=== PATIENT | female | born 1960 | race Caucasian/White ===

== ENCOUNTER 2017-09-19 05:48 | Emergency (ER) | payer OTHER, SELFPAY ==
[2017-09-19 05:49] VITALS: BP 132/85; PULSE 112; RESP 18; TEMP 37.7; O2SAT 96; BMI 20.3
[2017-09-19 05:55] VITALS: O2SAT 97
--- NOTE | 2017-09-19 05:56 | NURSING ---
RN REQUESTED EKG, NO OLD EKG'S IN MUSE
--- NOTE | 2017-09-19 05:59 | RAD_ITS ---
STUDY: X-RAY CHEST REASON FOR EXAM: Female, 57 years old. Cough and fever TECHNIQUE: PA and lateral COMPARISON: None. FINDINGS: There is advanced COPD. There are opacities at the lung bases suggesting infiltrates. There are NO effusions or pneumothoraces. Normal size heart. Normal mediastinum and dov. Normal visualized pulmonary arteries. Normal visualized aortic arch and descending thoracic aorta. There are diffuse degenerative changes of the visualized thoracic spine. Normal visualized ribs, clavicles, and shoulders. There is no demonstrated abnormality of the visualized soft tissue structures of the upper abdomen. RAD/Chest PA and Lateral IMPRESSION: There is advanced COPD. There are opacities at the lung bases suggesting infiltrates. There are NO effusions or pneumothoraces. There is no demonstrated pleural abnormality. Normal size heart. Electronically Signed: Ronak Bales MD at 6:36 EST , Service support ,
--- NOTE | 2017-09-19 05:59 | EKG12_ITS ---
Test Reason : CP Blood Pressure : / mmHG Vent. Rate : 104 BPM Atrial Rate : 104 BPM P-R Int : 142 ms QRS Dur : 076 ms QT Int : 312 ms P-R-T Axes : 082 078 043 degrees QTc Int : 410 ms Sinus tachycardia Otherwise normal ECG Confirmed by RADHA COOK, CELE ([id number]), real estate job titles SHAY RENEE ([id number]) on 09/24/2017 3:56:49 PM Referred By: SOLOMON Confirmed By:CELE GARCIA MD
[2017-09-19] MEDS: Ibuprofen 400 MG Tablet 800 MG PO (06:04)
--- NOTE | 2017-09-19 06:35 | ED.VISSUMM ---
- ER Visit Summary Date of Service: 09/19/17 Chief Complaint: [] Chest pain with cough History of Present Illness: The patient is a 57 F complaining of cough for the last week. Not significantly productive. No flu shot. She has had some chest discomfort over the last couple days. She describes a sharp pain mainly when she coughs. No cardiac PE or diet dissection risk factors. She has never had pleurisy. She has been using intermittent ibuprofen. Physical Examination: Vital signs reviewed temperature 99.9 General: Well-nourished well-developed Head: Normocephalic atraumatic Eyes: Pupils equal round and reactive to light extraocular movements intact ENT: TMs clear no hemotympanum no trauma Neck: Nontender full range of motion Cardiovascular: Regular tachycardia with normal rhythm no murmurs normal S1-S2 Respiratory: No distress clear to auscultation bilaterally chest nontender Abdomen: Soft nontender nondistended normal bowel sounds no masses Back: Nontender no CVA tenderness Extremities: Nontender active range of motion ?4 extremities no trauma Skin: Normal color no trauma Neuro alert oriented cranial nerves II through XII intact normal strength sensation reflexes Test Results: [] Emergency Department Course and Treatment: [] Flu negative. Chest x-ray shows bilateral streaky atelectasis. No significant infiltrate. At this time patient likely has bronchitis with pleurisy. EKG was obtained and shows sinus rhythm at 104 without ischemia. I have a low suspicion for PE dissection or coronary artery disease. She has had a significant cough. She will follow-up as an outpatient and continue anti-inflammatories. I will give her azithromycin. Treatment Plan: [] Disposition: [] Impression: [] Acute bronchitis Pleurisy This note was generated with [employer] dictation software. It may contain incorrect words, spelling, and punctuation that were not noted in review of the chart prior to signing ED Disposition - Plan for ED Patient: Chief Complaint: Chest Pain Referrals: Chon Hinson [Primary Care Provider] -
--- NOTE | 2017-09-19 06:37 | ED.DEP ---
ED Disposition - Plan for ED Patient: Disposition: Home or Assisted Living Chief Complaint: Chest Pain Instructions: Acute Bronchitis, Pleurisy Prescriptions: Azithromycin [Zithromax Z-Adeel] 250 mg PO UD #1 box Referrals: Chon Hinson [Primary Care Provider] -
[2017-09-19 06:44] VITALS: BP 113/73; PULSE 102; RESP 18; O2SAT 94
== END 2017-09-19 06:45 | disposition home or self-care (01) ==
PROVIDERS: Emergency Provider Emergency Medicine; Family Provider Family Medicine; PCP Family Medicine
DX: J20.9 Acute bronchitis, unspecified (principal); R09.1 Pleurisy; J98.11 Atelectasis; R00.0 Tachycardia, unspecified
CPT/HCPCS: 71046; 87804; 93005; 99284

== ENCOUNTER 2023-05-21 10:59 | Emergency (ER) | payer OTHER, SELFPAY ==
[2023-05-21 11:01] VITALS: BP 113/73; PULSE 79; RESP 14; TEMP 35.5; O2SAT 100; BMI 19.3
--- NOTE | 2023-05-21 11:33 | RAD_ITS ---
STUDY: X-RAY - LEFT TIBIA AND FIBULA REASON FOR EXAM: Female, 63 years old. Infection -- -- C/O LEFT CALF SWELLING AND REDNESS, C/O FEVERS OFF/ON SINCE SUNDAY. TECHNIQUE: 2 view(s) of the tibia and fibula were obtained. COMPARISON: None. FINDINGS: Normal visualized tibia. Normal visualized fibula. Soft tissue swelling. RAD/Tibia & Fibula 2 Views IMPRESSION: Soft tissue swelling. No bony abnormality is seen. Electronically Signed: Aditya Loera MD at 12:47 EDT ,
--- NOTE | 2023-05-21 11:33 | RAD_ITS ---
STUDY: X-RAY - LEFT FOOT CLINICAL: Female, 63 years old. Infection -- -- C/O LEFT CALF SWELLING AND REDNESS, C/O FEVERS OFF/ON SINCE SUNDAY. TECHNIQUE: 3 view(s) of the foot. COMPARISON: None. FINDINGS: Normal talus, calcaneus, and tarsal bones. Normal visualized subtalar, talonavicular, calcaneocuboid, tarsal and tarsometatarsal articulations. Normal metatarsi. Normal metatarsophalangeal joint of the great toe. Normal tibial and fibular sesamoid bones. Normal interphalangeal joint of the great toe. Normal phalanges of the great toe. Normal second through fifth metatarsophalangeal joints. Normal interphalangeal joints and phalanges of the lesser toes. Soft tissue swelling. RAD/Foot min 3 Views IMPRESSION: Soft tissue swelling. Electronically Signed: Aditya Loera MD at 12:50 EDT ,
--- NOTE | 2023-05-21 11:33 | VDLE_ITS ---
Reason For Study: LEG SWELLING RIGHT LEFT CFV is compressible, spontaneous, competent CFV is compressible, spontaneous, competent, and demonstrates pulsatile venous flow. and demonstrates pulsatile venous flow. Procedure FV is compressible, spontaneous, competent This is a venous duplex using B-mode, color and demonstrates pulsatile venous flow. flow and spectral Doppler. POP V is compressible, spontaneous, competent Exam performed portable in ED. and demonstrates pulsatile venous flow. The exam was diagnostic. T/P Trunk is compressible. A preliminary report was called and/or faxed PTV is compressible. to Dr. Kerr. LT PerV is compressible. VL/Venous Duplex US, Unilateral Interpretation Summary Deep veins of the left lower extremity are patent and compressible segmentally. There is no evidence of left lower extremity deep vein thrombosis. The left great saphenous vein liat ears patent and compressible segmentally. Ordering Physician: Leon Kerr Performed By: Ayden Devi RVT
[2023-05-21 11:56] LABS: Absolute Lymphocyte Count 0.74 X10^3/uL (0.83-4.51); Absolute Neutrophil Count 6.4 X10^3/uL (2.0-7.7); Basophil# 0.01 X10^3/uL; Basophil% 0.1 % (0-1); Eosinophil# 0.02 X10^3/uL; Eosinophils% 0.3 % (0-5); Hematocrit 35.5 % (37-47); Hemoglobin 11.7 g/dL (12.0-15.0); Lymphocyte # 0.74 X10^3/ul (0.83-4.51); Lymphocyte % 9.7 % (19-41); Mean Corpuscular Volume 88.1 fL (81-99); Mean Platelet Vol. 9.6 fl (6.2-12.0); Monocyte# 0.47 X10^3/uL; Monocyte% 6.1 % (0-10); NRBC Flagged by Analyzer 0 % (0-5); Neutrophil # 6.39 X10^3/uL (2.7-7.7); Neutrophil % 83.5 % (47-70); Platelet Count 158 K/mm3 (150-450); RBC Distribution Width CV 13.8 % (11.6-14.6); RBC Distribution Width SD 44.9 fl (35.1-43.9); Red Blood Count 4.03 M/mm3 (4.2-5.4); White Blood Count 7.7 K/mm3 (4.4-11.0)
--- NOTE | 2023-05-21 12:09 | EX.ED.DYSGE1 ---
HPI History of Present Illness Chief Complaint: Cellulitis Informant: patient Narrative Narrative: 63-year-old female presenting to the emergency room with left leg and foot swelling and redness. Patient states on Sunday she went to a local urgent care. Not feeling well. She noted generalized myalgias, fatigue, as well as fever. She states she was tested for RSV and other viral illness which came back negative. On Sunday she began to have swelling and some spots of erythema on the lower left leg/foot. It progressed to increased redness and swelling up to the proximal left leg. She denies any known trauma. No DVT PE risk factors. She is not a diabetic. She denies being immunosuppressed. She has not had a fever since yesterday [facility] Medical History (Updated 05/21/23 @ 14:[address] Leon Kerr DO) Anxiety Hypothyroidism Home Medications cephalexin 500 mg capsule 500 mg PO Q6 #40 CAPSULES 05/21/23 [Rx Last Taken Unknown] sulfamethoxazole 800 mg-trimethoprim 160 mg tablet 1 tab PO BID #20 TABLETS 05/21/23 [Rx Last Taken Unknown] Allergy/AdvReac Type Severity Reaction Status Date / Time No Known Allergies Allergy Verified 05/21/23 11:01 Social History Smoking Status: Never smoker ROS ROS ED ROS Narrative Fatigue Constitutional Constitutional ED: Reports chills and fever(s); Denies weight loss Eyes Eyes: Denies blurry vision, change in vision or diplopia ENT ENT ED: Denies ear pain, rhinorrhea or sore throat Cardiovascular Cardiovascular: Denies chest pain, orthopnea, palpitations or racing heartbeat Respiratory/Chest Respiratory/Chest: Denies cough, dyspnea or orthopnea Gastrointestinal Gastrointestinal: Denies abdominal pain, diarrhea, nausea or vomiting Genitourinary Genitourinary ED: Denies dysuria, hematuria or urinary frequency Musculoskeletal Musculoskeletal: Reports other Details: left leg foot swelling and erythema ; Denies arthralgias or myalgias Integumentary Reports rash; Denies abscess Neurologic Neurologic: Denies headache(s) or weakness Psychiatric Psychiatric: Denies anxiety, depression, suicidal ideation or suicidal thoughts Endocrine Endocrinology: Denies polydipsia, polyphagia or polyuria Allergic/Immunologic Allergic/Immunologic ED: Denies mouth swelling, tongue swelling or urticaria EXAM Physical Exam Const Vital Signs: 05/21/23 11:01 Temperature 96 F L Temperature Source Temporal Pulse Rate 79 Respiratory Rate 14 Blood Pressure 113/73 Blood Pressure Mean 86 Pulse Ox 100 Oxygen Delivery Method Room Air Positive well nourished and well developed General Appearance ED: well developed HEENT Reports normocephalic, head/scalp atraumatic and moist mucous membranes Eyes PERRL and EOMs intact bilaterally Neck no lymphadenopathy, supple and no JVD Resp normal respiratory effort and clear to auscultation bilaterally Cardio regular rate, regular rhythm and no murmurs GI normal to inspection, nondistended, normoactive bowel sounds and non-tender Palpation: soft Back/Spine no CVA tenderness and normal ROM Extremity Extremity Narrative: Left leg starting around the tibial tuberosity demonstrates pitting edema. There is circumferential erythema extending down into the foot. There are some dry skin with cracks around the heel of the left foot. Neurovascularly appears intact however. The calf is nontender. There are some petechial-like changes to the left leg skin. No palpable cords. Neuro oriented x3 and CN's II-XII intact bilaterally Sensorium / Orientation: alert Motor Exam: strength 5/5 throughout Psych mental status grossly normal Mood & Affect: Negative for depressed or tearful Skin no rashes or lesions noted and no wounds MDM MDM MDM Narrative Medical decision making narrative: Duplex ultrasound looking for DVT is negative. My interpretation of the plain films of the left tib-fib is soft tissue swelling. No air in the soft tissues. My interpretation of the plain films of the left foot is is soft tissue swelling. No air in the soft tissue. No obvious bony disease. Patient's white blood cell count is normal at 7.7. Hemoglobin of 11.7. Lactic acid is normal at 0.9. Sodium of 128 with a CO2 level of 20. Creatinine 1.12. Patient has remained afebrile here I personally took it at the time of discharge and is 97.7. At this point we will treat her for cellulitis. I will write for Keflex and Bactrim to cover staph and strep. Patient understands return instructions and understands follow-up procedure. Lab Data Attestation: I reviewed the patient's lab results. Labs: Laboratory Results - last 24 hr 05/21/23 11:45 WBC 7.7 RBC 4.03 L Hgb 11.7 L Hct 35.5 L MCV 88.1 MCH 29.0 MCHC 33.0 RDW Std Deviation 44.9 H RDW Coeff of Feliz 13.8 Plt Count 158 MPV 9.6 Immature Gran % (Auto) 0.300 Neut % (Auto) 83.5 H Lymph % (Auto) 9.7 L Banks % (Auto) 6.1 Eos % (Auto) 0.3 Baso % (Auto) 0.1 Absolute Neuts (auto) 6.4 Absolute Lymphs (auto) 0.74 L Nucleated RBC % 0 PT 14.7 INR 1.1 APTT 34.2 Sodium 128 L Potassium 3.8 Chloride 100 Carbon Dioxide 20.0 L Anion Gap 8 BUN 29 H Creatinine 1.12 H Estim Creat Clear Calc 48.37 Est GFR (MDRD) Af Amer 63 Est GFR (MDRD) Non-Af 52 L BUN/Creatinine Ratio 25.9 H Glucose 83 Lactic Acid 0.9 Calcium 8.4 L Total Bilirubin 0.50 AST 45 H ALT 30 Alkaline Phosphatase 108 Total Protein 8.3 H Albumin 2.7 L Globulin 5.6 H Albumin/Globulin Ratio 0.5 L Radiography Diagnostic Testing: Clinical Impression(s) from Imaging Studies Foot X-Ray 05/21/23 11:33 IMPRESSION: Soft tissue swelling. Electronically Signed: Aditya Loera MD at 12:50 EDT , Tibia/Fibula X-Ray 05/21/23 11:33 IMPRESSION: Soft tissue swelling. No bony abnormality is seen. Electronically Signed: Aditya Loera MD at 12:47 EDT , Discharge Plan Triage Chief Complaint: Cellulitis ED Provider: Leon Kerr Dx/Rx/DC Orders Clinical Impression: Cellulitis of left leg, Cellulitis of foot, left Instructions: Cellulitis Dc Prescriptions: New sulfamethoxazole-trimethoprim [sulfamethoxazole-trimethoprim] 800-160 mg tablet 1 tab PO BID Qty: 20 0RF cephalexin [cephalexin] 500 mg capsule 500 mg PO Q6 Qty: 40 0RF Primary Care Provider: Chon Hinson Referrals: Chon Hinson MD [Primary Care Provider] - 3-5 Days Disposition Disposition: Home, Self Care
[2023-05-21 12:17] LABS: Partial Thromboplast Time 34.2 Seconds (24.1-36.2)
[2023-05-21 12:19] LABS: ALB/GLOB Ratio 0.5 RATIO (0.9-2.4); AST(SGOT) 45 U/L (15-37); Alanine Aminotransfer ALT/SGPT 30 U/L (13-56); Albumin, Serum 2.7 g/dL (3.2-5.0); Alkaline Phosphatase 108 U/L (45-117); Anion Gap 8 (5-15); BUN 29 mg/dL (7-18); BUN/Creat Ratio 25.9 RATIO (10-20); Calcium,Total 8.4 mg/dL (8.5-10.1); Chloride 100 mmol/L (98-107); Creatinine, Serum 1.12 mg/dL (0.55-1.02); EST Glomerular Filtration Rate 52 mL/min (>60); Est Glom Filt Rate - Afr Amer 63 mL/min (>60); Estimated Creatinine Clearance 48.37 ml/min; Globulin 5.6 g/dL (2.2-4.2); Glucose 83 mg/dL (74-106); Potassium 3.8 mmol/L (3.5-5.1); Protein, Total 8.3 g/dL (6.4-8.2); Sodium Level 128 mmol/L (136-145)
[2023-05-21 12:23] LABS: International Normalized Ratio 1.1; Prothrombin Time (Protime)PT. 14.7 SECONDS (11.7-14.9)
[2023-05-21 12:33] LABS: Lactic Acid 0.9 mmol/L (0.4-1.9)
[2023-05-21 14:18] VITALS: RESP 16
== END 2023-05-21 14:20 | disposition home or self-care (01) ==
PROVIDERS: Emergency Provider Emergency Medicine; PCP Family Medicine; Visit Provider Emergency Medicine
DX: L03.116 Cellulitis of left lower limb (principal)
CPT/HCPCS: 73590; 73630; 80053; 83605; 85025; 85610; 85730; 87040; 93971; 99284; A4216

== ENCOUNTER 2023-05-23 17:47 | Emergency (ER) | payer OTHER, SELFPAY ==
[2023-05-23 17:49] VITALS: BP 126/84; PULSE 90; RESP 18; TEMP 36.2; O2SAT 100; BMI 19.4
[2023-05-23 18:44] LABS: Hematocrit 33.1 % (37-47); Mean Corp Hgb Conc 33.2 g/dL (32-36); Mean Corpuscular Volume 87.3 fL (81-99); Mean Platelet Vol. 8.9 fl (6.2-12.0); Platelet Count 241 K/mm3 (150-450); RBC Distribution Width CV 13.7 % (11.6-14.6); RBC Distribution Width SD 43.9 fl (35.1-43.9); Red Blood Count 3.79 M/mm3 (4.2-5.4); White Blood Count 6.4 K/mm3 (4.4-11.0)
[2023-05-23 18:54] LABS: Erythrocyte Sedimentation Rate 32 mm/hr (0-30)
[2023-05-23 19:01] LABS: Anion Gap 4 (5-15); BUN 15 mg/dL (7-18); Calcium,Total 8.8 mg/dL (8.5-10.1); Chloride 103 mmol/L (98-107); Creatinine, Serum 0.94 mg/dL (0.55-1.02); EST Glomerular Filtration Rate 64 mL/min (>60); Est Glom Filt Rate - Afr Amer 78 mL/min (>60); Estimated Creatinine Clearance 57.81 ml/min; Glucose 89 mg/dL (74-106); Potassium 4.4 mmol/L (3.5-5.1); Sodium Level 132 mmol/L (136-145)
[2023-05-23] MEDS: Piperacil/Tazobactam 4.5 GM in 0.9% Normal Saline (100mL MB+) 100 ML IV (19:01)
--- NOTE | 2023-05-23 19:10 | EDS_ITS ---
HPI History of Present Illness Chief Complaint: Edema Informant: patient and spouse/S.O. Narrative Narrative: His ED reevaluation left lower leg swelling and redness. Was seen 2 days in the ED with a work-up. Reported had a fever on Sunday noticed spots on her ankle on Sunday presented on Sunday with increasing swelling and redness. Work-up was initiated she was sent home on Keflex and Bactrim she has been taking this. Per redness in the back calf is improved however legs not improved. No diabetes history. No persistent fevers. No history of similar. After work-up evaluation records lab work normal white count blood cultures obtained x2 and negative thus far. Ultrasound leg was negative. Left foot and tib-fib no soft tissue swelling. PFSH PFSH Medical History Anxiety Hypothyroidism Home Medications levothyroxine 100 mcg tablet 100 mcg PO DAILY 05/23/23 [History Last Taken Unknown] sertraline 50 mg tablet 50 mg PO Q24H 05/23/23 [History Last Taken Unknown] Allergy/AdvReac Type Severity Reaction Status Date / Time No Known Allergies Allergy Verified 05/23/23 17:49 Social History household members: spouse Smoking Status: Never smoker ROS ROS ED Constitutional Constitutional ED: Denies chills, fever(s) or sweats Eyes Eyes: Denies change in vision ENT ENT ED: Denies dysphagia or sore throat Cardiovascular Cardiovascular: Reports leg edema; Denies chest pain, palpitations or racing heartbeat Respiratory/Chest Respiratory/Chest: Denies cough, dyspnea or dyspnea on exertion Gastrointestinal Gastrointestinal: Denies abdominal pain, diarrhea, nausea or vomiting Genitourinary Genitourinary ED: Denies dysuria, hematuria or urinary frequency Musculoskeletal Musculoskeletal: Denies back pain, extremity pain or neck pain Integumentary Reports rash; Denies wounds Neurologic Neurologic: Denies headache(s), paresthesias or weakness EXAM Physical Exam Const Vital Signs: 05/23/23 17:49 05/23/23 21:42 Temperature 97.2 F L Temperature Source Temporal Pulse Rate 90 Respiratory Rate 18 18 Blood Pressure 126/84 H Blood Pressure Mean 98 Pulse Ox 100 Oxygen Delivery Method Room Air Room Air Positive well nourished and well developed General Appearance ED: well developed and NAD HEENT Reports moist mucous membranes normocephalic and atraumatic Eyes PERRL, EOMs intact bilaterally and conjunctivae normal General Eye ED: Yes normal appearance of both eyes Neck no lymphadenopathy and supple General: Negative for tenderness Chest Wall Chest: Negative for tenderness Resp normal respiratory effort and normal air movement Effort and Inspection: symmetric chest movement; Negative for respiratory distress Cardio regular rate, regular rhythm and no murmurs Peripheral Pulses: pulses 2+ throughout GI normal to inspection, nondistended, normoactive bowel sounds and non-tender Palpation: Negative for guarding or rebound tenderness present Back/Spine no CVA tenderness and no thoracic nor lumbar tenderness Extremity Extremity Narrative: Left lower extremity: 2+ edema left lower leg, erythema anterior proximal tibia, erythema posterior from the mid calf down to the foot. There is mild yellow leakage of fluid distal anterior leg. Pulses were intact distally. General Extremety ED: Yes edema; Negative for tenderness General Extremity: edema Neuro oriented x3 and no sensory deficits noted Sensorium / Orientation: awake and alert Skin no rashes or lesions noted and no wounds MDM MDM MDM Narrative Medical decision making narrative: Interventions / MDM: Differential diagnosis: Left lower extremity cellulitis Diagnosis considered but do not suspect: N/A My EKG interpretation: N/A Imaging independently reviewed and interpreted by myself: N/A External documents reviewed: ED visit from 2 days ago. Negative DVT studies. X-rays with soft tissue swelling. Test considered but not ordered:N/A ED course: Vital stable nontoxic. Reporting from spouse erythema is improved posteriorly. We will recheck labs inflammatory markers. Patient covered with Zosyn and vancomycin for additional IV dose. Results Labs White count down to 6.4. Elevated inflammatory markers consistent with her clinical cellulitis findings. Erythema was outlined, reported improving slightly symptoms compared to 2 days ago. Discussed continuing her oral antibiotics with strict return precautions. All questions answered. Re-evaluation: stable Disposition discussed with patient/family/significant other: Patient and significant other Case discussed with consulting clinician: N/A This note was generated with [employer] dictation software. It may contain incorrect words, spelling, and punctuation that were not noted in checking the note before signing. Lab Data Attestation: I reviewed the patient's lab results. Labs: Laboratory Results - last 24 hr 05/23/23 18:35 WBC 6.4 RBC 3.79 L Hgb 11.0 L Hct 33.1 L MCV 87.3 MCH 29.0 MCHC 33.2 RDW Std Deviation 43.9 RDW Coeff of Feliz 13.7 Plt Count 241 MPV 8.9 ESR 32 H Sodium 132 L Potassium 4.4 Chloride 103 Carbon Dioxide 25.0 Anion Gap 4 L BUN 15 Creatinine 0.94 Estim Creat Clear Calc 57.81 Est GFR (MDRD) Af Amer 78 Est GFR (MDRD) Non-Af 64 BUN/Creatinine Ratio 16.0 Glucose 89 Calcium 8.8 C-React Prot Ext Range 93.30 H Discharge Plan Triage Chief Complaint: Edema ED Provider: Winston De Dx/Rx/DC Orders Clinical Impression: Cellulitis of left leg, Cellulitis of foot, left Instructions: ED Cellulitis Prescriptions: No Action sertraline 50 mg tablet 50 mg PO Q24H levothyroxine 100 mcg tablet 100 mcg PO DAILY Primary Care Provider: Chon Hinson Referrals: Chon Hinson MD [Primary Care Provider] - Activity Restrictions/Additional Instructions: Labs stable, continue your current antibiotic regimen. Follow-up with your doctor. Return if any worsening symptoms. Disposition Disposition: Home, Self Care Discharge Date/Time: 05/23/23 22:26
[2023-05-23] MEDS: Vancomycin HCl 1,500 MG in 0.9% Normal Saline (500mL Bag) 500 ML 250 MG IV (19:47)
[2023-05-23 21:42] VITALS: RESP 18
== END 2023-05-23 22:26 | disposition home or self-care (01) ==
PROVIDERS: Emergency Provider Emergency Medicine; PCP Family Medicine; Visit Provider Emergency Medicine
DX: L03.116 Cellulitis of left lower limb (principal); E03.9 Hypothyroidism, unspecified; F41.9 Anxiety disorder, unspecified; Z79.899 Other long term (current) drug therapy
CPT/HCPCS: 80048; 85027; 85652; 86140; 99283; J7040; J7050; A4216

== ENCOUNTER → 2023-07-18 | Outpatient (CLI) | payer OTHER, SELFPAY ==
--- NOTE | 2023-07-18 08:10 | VDLE_ITS ---
Reason For Study: LLE Swelling RIGHT LEFT GSV is normal. GSV is normal. CFV is compressible, spontaneous, phasic, CFV is compressible, spontaneous, phasic, competent and demonstrates normal competent, and demonstrates normal augmentation. augmentation. FV is compressible, spontaneous, phasic, FV is compressible, spontaneous, phasic, competent and demonstrates normal competent and demonstrates normal augmentation. augmentation. POP V is compressible, spontaneous, phasic, POP V is compressible, spontaneous, phasic, competent and demonstrates normal competent and demonstrates normal augmentation. augmentation. T/P Trunk is compressible. T/P Trunk is compressible. PTV is compressible. PTV is compressible. RT PerV is compressible. LT PerV is compressible. Procedure This is a venous duplex using B-mode, color flow and spectral Doppler. Exam performed in department. The exam was diagnostic. VL/Venous Duplex US - Nikita Extrem Interpretation Summary Deep veins of the lower extremities are bilaterally patent and compressible seg mentally. There is no evidence of deep vein thrombosis on either side. Valvular competence appears in tact within the proximal deep venous systems bilaterally. The great saphenous veins appear bila terally patent and compressible segmentally. Ordering Physician: Leon Canela Referring Physician: Chon Hinson Performed By: Ayden Devi, RVT
--- NOTE | 2023-07-18 08:10 | AAVD_ITS ---
Reason For Study: R/O May Thurner Aorta Measurements Aorta Doppler Measurements Proximal aorta measures1.96 x 2.16cm. in cross- Peak systolic flow velocities within the proximal sectional axis. aorta measure 95.9 cm/sec. Proximal aorta measures2.11cm. in longitudinal Peak systolic flow velocities within the mid aorta axis. measure 75.9 cm/sec. Mid aorta measures1.59 x 1.48cm. in cross- Peak systolic flow velocities within the distal sectional axis. aorta measure 77.7 cm/sec. Mid aorta measures1.66cm. in longitudinal axis. Distal aorta measures1.58 x 1.57cm. in cross- sectional axis. Distal aorta measures1.59cm. in longitudinal axis. Left Iliac Artery Left iliac artery measures 0.92 x 0.92 cm. in the cross-sectional axis. Left iliac artery measures 0.91 cm. in the longitudinal axis. Peak systolic velocity in the left iliac artery measures 77.7 cm/sec. Right Iliac Artery Right iliac artery measures 0.93 x 0.91 cm. in the cross-sectional axis. Right iliac artery measures 0.86 cm. in the longitudinal axis. Peak systolic velocity in the right iliac artery measures 92.2 cm/sec. Inferior Vena Cava Proximal inferior vena cava measures 1.78 x 2.20 cm. in the cross-sectional axis. Proximal inferior vena cava measures 1.86 cm. in the longitudinal axis. Mid inferior vena cava measures 1.49 cm. in the longitudinal axis. Distal inferior vena cava measures 1.30 cm. in the longitudinal axis. The inferior vena cava has spontaneous, phasic flow throughout. IVC is compressible at mid. Left Common Iliac Vein Left common iliac vein measures 0.89 cm. in the longitudinal axis. The left common iliac vein has spontaneous, phasic flow throughout. Right Common Iliac Vein Right common iliac vein measures 1.21 cm. in the longitudinal axis. The right common iliac vein has spontaneous, phasic flow throughout. VL/Abd Aortic/IVC Duplex scan Interpretation Summary The dimensions of the intra-abdominal aorta appear normal, without evidence of aneurysmal dilatation. The iliac arteries also appear normal in caliber bilaterally. The i ntra-abdominal aorta and iliac arteries appear patent, demonstrating normal, pulsatile arterial flow and normal peak systolic velocities. The inferior vena cava and common iliac veins are patent a nd normal in caliber. Ordering Physician: Leon Canela Referring Physician: Chon Hinson Performed By: Ayden Devi RVT
== END | disposition home or self-care (01) ==
LOC: CVS 08:08
PROVIDERS: PCP Family Medicine; Referring Provider Podiatrist; Visit Provider Podiatrist
DX: M79.605 Pain in left leg (principal); R22.42 Localized swelling, mass and lump, left lower limb; M79.604 Pain in right leg; R22.41 Localized swelling, mass and lump, right lower limb
CPT/HCPCS: 93970; 93978

== ENCOUNTER → 2023-08-24 | Outpatient (CLI) | payer OTHER, SELFPAY ==
--- NOTE | 2023-08-24 09:48 | VDLE_ITS ---
Reason For Study: Swelling RIGHT LEFT CFV is compressible, spontaneous, phasic, CFV is compressible, spontaneous, phasic, competent and demonstrates normal competent, and demonstrates normal augmentation. augmentation. FV is compressible, spontaneous, phasic, FV is compressible, spontaneous, phasic, competent and demonstrates normal competent and demonstrates normal augmentation. augmentation. POP V is compressible, spontaneous, phasic, POP V is compressible, spontaneous, phasic, competent and demonstrates normal competent and demonstrates normal augmentation. augmentation. T/P Trunk is compressible. T/P Trunk is compressible. PTV is compressible. PTV is compressible. RT PerV is compressible. LT PerV is compressible. SFJ is competent and measures 0.66 x 0.79 cm. SFJ is competent and measures 0.83 x 0.95 cm. GSV proximal thigh measures 0.29 x 0.31 cm. GSV proximal thigh measures 0.37 x 0.36 cm. GSV above knee is competent. GSV above knee is competent. GSV at knee measures 0.23 x 0.23 cm. GSV at knee measures 0.28 x 0.27 cm. GSV below knee is INCOMPETENT for greater GSV below knee is INCOMPETENT for greater than 0.5 seconds. than 0.5 seconds. SSV proximal calf is INCOMPETENT for greater SSV proximal calf is INCOMPETENT for greater than 0.5 seconds and measures 0.28 x 0.29 cm. than 0.5 seconds and measures 0.28 x 0.28 cm. Procedure This is a venous duplex using B-mode, color flow and spectral Doppler. Exam performed in department. VL/Venous Duplex US - Nikita Extrem Interpretation Summary Deep veins of the bilateral lower extremities are patent and compressible segme ntally. There is no evidence of bilateral lower extremity deep vein thrombosis. The bilateral great saphenous veins appear patent and compressible segmentally. Positive for reflux in the right great saphenous vein below the knee, small sap henous vein Positive for reflux in the left great saphenous vein below the knee, small saph enous vein Ordering Physician: Berta Davenport Referring Physician: Chon Hinson Performed By: Diana Bailon RVT
--- OUTSIDE RECORDS SUMMARY | 2023-08-24 10:38 | XMS RPT_ITS | CCD ---
Author Name Unknown Address [address] [place] [address] Organization [facility] Care Team Providers Care Logistics Technician Name Role Phone Nam Hinson Primary Care Provider NAM HINSON Primary Care Unavailable NAM HINSON Primary Care Unavailable LELE ANNA MD Primary Care Unavailable LELE ANNA MD Attending Unavailable NAM HINSON Consulting Unavailable NAM HINSON Referring Unavailable LELE ANNA MD Admitting Unavailable PROVIDER, UNKNOWN Consulting Unavailable PROVIDER, UNKNOWN Consulting Unavailable NAM HINSON Admitting Unavailable NAM HINSON Primary Care Unavailable NAM HINSON Consulting Unavailable NAM HINSON Attending Unavailable PROVIDER, UNKNOWN Consulting Unavailable PROVIDER, UNKNOWN Consulting Unavailable Malcolm Lambert CNP Unavailable Nam Hinson MD Primary Care Provider [phone] Nam Hinson MD Primary Care Provider [phone] Malcolm Lambert CNP Unavailable DARELL, PRITY MIKE Attending Unavailable DARELL, PRITY MIKE Admitting Unavailable NAM HINSON Primary Care Unavailable DARELL, PRITY MIKE Referring Unavailable DARELL, PRITY MIKE Attending Unavailable NAM HINSON Primary Care Unavailable DARELL, PRITY MIKE Referring Unavailable DARELL, PRITY MIKE Attending Unavailable DARELL, PRITY MIKE Admitting Unavailable NAM HINSON Primary Care Unavailable Medications Current Medications Medication Drug Class(es) Dates Sig (Normalized) Sig (Original) amoxicillin 500 mg oral tablet (3 sources) Penicillin-class Antibacterial Start: 06-25-2023 End: 07-02-2023 take 1 tablet by mouth twice daily amoxicillin (AMOXIL) 500 MG tablet Take 1 (one) tablet (500 mg total) by mouth 2 (two) times a day for 7 days . 14 tablet 0 06/25/2023 07/02/2023 Active ciprofloxacin 500 mg oral tablet (3 sources) Quinolone Antimicrobial take 1 tablet by mouth twice daily ciprofloxacin HCl (CIPRO) 500 MG tablet Take 1 (one) tablet (500 mg total) by mouth 2 (two) times a day . 0 Active doxycycline hyclate 100 mg oral capsule (6 sources) Tetracycline-class Drug Start: 06-25-2023 End: 07-02-2023 take 1 capsule by mouth twice daily at mealtime doxycycline hyclate (VIBRAMYCIN) 100 MG capsule Take 1 (one) capsule (100 mg total) by mouth 2 (two) times a day with meals Stay out of the sun. for 7 days . 14 capsule 0 06/25/2023 07/02/2023 Active Completed/Discontinued Medications Medication Drug Class(es) Dates Sig (Normalized) Sig (Original) betamethasone 0.5 mg/ml / clotrimazole 10 mg/ml topical cream (4 sources) Azole Antifungal, Corticosteroid Start: 06-27-2023 End: 06-27-2023 clotrimazole-bet amethasone (LOTRISONE) cream Problems Active Problems Problem Classification Problem Date Documented Da te Episodic/Chronic Cataract (3 sources) Nuclear sclerotic cataract; Translations: [Age-related nuclear cataract, bilateral] Onset: 10-02-2016 10-02-2016 Chronic Mycoses (5 sources) Tinea pedis; Translations: [Tinea pedis] Onset: 06-25-2023 06-25-2023 Episodic Other eye disorders (3 sources) Vitreous floaters; Translations: [Other vitreous opacities, unspecified eye] Onset: 10-02-2016 10-02-2016 Chronic Other injuries and conditions due to external causes (1 source) Injury of elbow; Translations: [Unspecified injury of right elbow, initial encounter] Episodic Other injuries and conditions due to external causes (1 source) Injury of head; Translations: [Unspecified injury of head, initial encounter] Episodic Other upper respiratory infections (1 source) Acute upper respiratory infection; Translations: [Acute upper respiratory infection, unspecified] 05-19-2023 Episodic Residual codes; unclassified (3 sources) Swelling; Translations: [Edema, unspecified] 06-25-2023 Episodic Residual codes; unclassified (2 sources) Edema, unspecified; Translations: [Edema, unspecified] Onset: 06-25-2023 Episodic Skin and subcutaneous tissue infections (6 sources) Cellulitis; Translations: [Cellulitis of other sites] Onset: 06-25-2023 06-22-2023 Episodic Past or Other Problems Problem Classification Problem Date Documented Da te Episodic/Chronic Blindness and vision defects (9 sources) Myopia; Translations: [Myopia, unspecified eye] Onset: 10-02-2016 10-02-2016 Episodic Other eye disorders (3 sources) Dry eyes; Translations: [Dry eye syndrome of bilateral lacrimal glands] Onset: 10-02-2016 10-02-2016 Episodic Results Test Name Value Interpretation Reference Range Facil ity Vital Signs Date Time Vital Sign Value Performing Clinician Faci lity 06-27-2023 09:37-0500 Body temperature 97.39 [degF] Josiah Lozoya MD Work Phone: [facility] 06-27-2023 09:37-0500 Diastolic blood pressure 83 mm[Hg] Josiah Lozoya MD Work Phone: [facility] 06-27-2023 09:37-0500 Heart rate 70 /min Josiah Lozoya MD Work Phone: [facility] 06-27-2023 09:37-0500 Respiratory rate 18 /min Josiah Lozoya MD Work Phone: [facility] 06-27-2023 09:37-0500 SaO2% (BldA) [Mass fraction] 99 % Josiah Lozoya MD Work Phone: [facility] 06-27-2023 09:37-0500 Systolic blood pressure 134 mm[Hg] Josiah Lozoya MD Work Phone: [facility] 06-25-2023 09:48-0500 Body height 175.3 cm Josiah Lozoya MD Work Phone: [facility] 06-25-2023 09:48-0500 Body mass index (BMI) [Ratio] 19.2 kg/m2 Josiah Lozoya MD Work Phone: [facility] 06-25-2023 09:48-0500 Body temperature 98.6 [degF] Josiah Lozoya MD Work Phone: [facility] 06-25-2023 09:48-0500 Body weight 58.97 kg Josiah Lozoya MD Work Phone: [facility] 06-25-2023 09:48-0500 Diastolic blood pressure 78 mm[Hg] Josiah Lozoya MD Work Phone: [facility] 06-25-2023 09:48-0500 Heart rate 63 /min Josiah Lozoya MD Work Phone: [facility] 06-25-2023 09:48-0500 Respiratory rate 18 /min Josiah Lozoya MD Work Phone: [facility] 06-25-2023 09:48-0500 SaO2% (BldA) [Mass fraction] 97 % Josiah Lozoya MD Work Phone: [facility] 06-25-2023 09:48-0500 Systolic blood pressure 125 mm[Hg] Josiah Lozoya MD Work Phone: [facility] 05-19-2023 13:48-0400 Body temperature 102.4 [degF] Joya Menendez APRN.ENTREPRENEURIAL FINANCE PROFESSOR Work Phone: [facility] 05-19-2023 13:48-0400 Body weight 59.15 kg Joya Menendez APRN.[employer] FINANCE PROFESSOR Work Phone: [facility] 05-19-2023 13:48-0400 Diastolic blood pressure 64 mm[Hg] Joya Menendez APRN.[employer] FIN[employer] PROFESSOR Work Phone: [facility] 05-19-2023 13:48-0400 Heart rate 115 /min Joya Menendez APRN.[employer] FINANCE PROFESSOR Work Phone: [facility] 05-19-2023 13:48-0400 Respiratory rate 16 /min Joya Menendez APRN.[employer] FINANCE PROFESSOR Work Phone: [facility] 05-19-2023 13:48-0400 SaO2% (BldA) [Mass fraction] 98 % Joya Menendez APRN.[employer] FINANCE PROFESSOR Work Phone: [facility] 05-19-2023 13:48-0400 Systolic blood pressure 98 mm[Hg] Joya Menendez APRN.[employer]RE[employer] FINANCE PROFESSOR Work Phone: [facility] 03-21-2022 08:16-0400 Body temperature 97.9 [degF] Darlyn Bogner PA-C Work Phone: [facility] 03-21-2022 08:16-0400 Body weight 58.97 kg Darlyn Bogner PA-C Work Phone: [facility] 03-21-2022 08:16-0400 Diastolic blood pressure 60 mm[Hg] Darlyn Bogner PA-C Work Phone: [facility] 03-21-2022 08:16-0400 Heart rate 90 /min Darlyn Bogner PA-C Work Phone: [facility] 03-21-2022 08:16-0400 Respiratory rate 16 /min Darlyn Bogner PA-C Work Phone: [facility] 03-21-2022 08:16-0400 SaO2% (BldA) [Mass fraction] 99 % Darlyn Bogner PA-C Work Phone: [facility] 03-21-2022 08:16-0400 Systolic blood pressure 102 mm[Hg] Darlyn Bogner PA-C Work Phone: [facility] Encounters Encounter Date Encounter Type Care Provider Facility Start: 06-27-2023 End: 06-27-2023 ambulatory JOSIAH LOZOYA [facility] Start: 06-27-2023 End: 06-27-2023 Office outpatient visit 25 minutes Josiah Lozoya MD Work Phone: [facility] Procedures Date Procedure Procedure Detail Performing Clinician Start: 06-25-2023 Cul bact xcpt urine blood/stool aerobic isol Prity Darell MD Work Phone: Start: 11-02-2010 Ben Loving PA-C Work Phone: Plan of Treatment Date Care Activity Detail Author Start: 07-02-2023 End: 07-02-2023 Patient encounter procedure 07/02/2023 9:30 AM EST Office Visit [facility] [address] [place] [id number] Josiah Lozoya MD [address] [address] Discharge Disposition: Home [facility] Start: 06-27-2023 End: 06-27-2023 Patient encounter procedure 06/27/2023 9:15 AM EST Office Visit [facility] [address] [place] [id number] Josiah Lozoya MD [address] [address] Discharge Disposition: Home [facility] Start: 05-19-2023 End: 06-02-2023 COVID & INFLUENZA A/B & RSV NAAT, ROUTINE COVID & INFLUENZA A/B & RSV NAAT, ROUTINE Microbiology Routine URI, acute Expected: 05/19/2023, Expires: 06/02/2023 [facility] Work Phone: Immunizations Immunization Date Immunization Notes Care Provider Fa cilimica 06-09-2022 influenza virus vacc ine, unspecified formulation Joya Menendez APRN.CNP Work Phone: [facility] Payers Date Payer Category Payer Unknown [id number] 2020 Unknown [employer] PPO [id number] 2020-Present [phone] [address] [place] [address] PPO [id number] 2020 Unknown [id number] 1960 Unknown [id number] 1960 Unknown [id number] 1960 Unknown [id number] 1960 Unknown [id number] 1960 Unknown [id number] Social History Date Type Detail Facility Start: 11-25-2020 End: 06-25-2023 Tobacco smoking status NHIS Never smoked tobacco [facility] Work Phone: Start: 03-21-2022 End: 05-19-2023 Alcohol intake Current non-drinker of alcohol (finding) [facility] Start: 1960 Sex Assigned At Not on file [facility] Start: 03-11-2022 End: 03-21-2022 Exposure to SARS-CoV-2 (event) Not sure [facility] Work Phone: Start: 11-25-2020 End: 05-19-2023 Tobacco use and exposure Smokeless tobacco non-user [facility] Start: 05-19-2023 End: 06-25-2023 History of Social function [facility] Start: 05-19-2023 End: 06-25-2023 Tobacco use panel [facility] National Score (1-100), lower number is lower risk 56 [facility] Tobacco smoking status NHIS Tobacco smoking consumption unknown [facility] Start: 06-25-2023 End: 06-27-2023 Alcohol intake Lifetime non-drinker (finding) [facility] Clinical Notes 03-21-2022 to 06-27-2023 Patient Abena Cardenas, ERICKSON - 06/27/2023 9:15 AM Josiah Miramontes MD - 06/27/2023 9:15 AM Zo Del Cid LPN - 06/25/2023 11:26 AM Josiah Miramontes MD - 06/25/2023 10:12 AM EST Note Date & Type Note Facility 06-27-2023 Instructions Margarita Avery RN - 06/27/2023 10:18 AM EST Silver cell in the webspace between the third fourth and fourth webspace of the left foot then put Curlex or a strip of smooth 4 x 4 between the toes She will put the powder that she has which is nystatin powder between the toes at bedtime Okay to shower do not rub do not scrub dry it with a smooth discharge can use a environmental studies department chair on cold in the webspace to dry it up before putting a new dressing she can put the powder first and the silver cell Doxycycline 100 mg p.o. twice daily Amoxicillin 500 mg p.o. twice daily Revisit 1 week Kingsley bandage to the left leg during the day remove at nighttime documented in this encounter [facility] 06-27-2023 History of Present illness Narrative Date: 06/25/2023 Update since last visit: 06/25/2023 I have personally reviewed all labs and other results 06/25/2023 Venous Ultrasound Conclusions * No evidence of deep or superficial vein thrombosis in the left lower extremity. 06/17/2023 CT Left Tib/Fib Conclusion: There is no evidence of focal bone abnormality. Extensive subcutaneous edema is present consistent ith cellulitis. There is no evidence of drainable abscess. Current antibiotics: Amoxicillin 500 mg PO BID Doxycycline 100 mg PO BID Current culture: 06/25/2023 [id number], 5th toe webspace: Normal umer after 24 hours. Preliminary. Dressing: Left leg: Lotrisone in clinic. Interdry to toes. DSD, kingsley wrap Images from the original note were not included. Infectious Diseases Consultation Note Patient Name: Katrin Duran MR #: [id number] : 1960 Physicians: Nam Hinson MD (Family); No ref. provider found (Referring) Assessment and Plan: 06/25/2023 impression 1) left extremity cellulitis 2) skin with peeling suggestive of staph and strep and original blisters 3) tinea pedis left fourth and fifth webspaces primary source for this recurrence and persistence 4) venous pressure negative at [facility] will need to repeat 5) good ongoing pulses 6) failed multiple p.o. 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 window where she can come in follow-up appointments with physicians 06/27/2023 Left leg cellulitis Dermatitis Tinea pedis Responding well empirically to staph and strep coverage culture was normal umer Venous ultrasound negative for DVT At risk for tissue loss Recommend: 06/27/2023 Silver cell in the webspace between the third fourth and fourth webspace of the left foot then put Curlex or a strip of smooth 4 x 4 between the toes She will put the powder that she has which is nystatin powder between the toes at bedtime Okay to shower do not rub do not scrub dry it with a smooth discharge can use a environmental studies department chair on cold in the webspace to dry it up before putting a new dressing she can put the powder first and the silver cell Doxycycline 100 mg p.o. twice daily Amoxicillin 500 mg p.o. twice daily Revisit 1 week Kingsley bandage to the left leg during the day remove at nighttime 06/25/2023 1) culture between the webspace fourth and fifth year 2) venous ultrasound stat of the left lower extremity Lotrisone to the left leg here once 3) Interdry fabric between the toes Desenex powder at bedtime at home 4) amoxicillin 500 g p.o. 2 times daily 5) doxycycline 100 g p.o. twice daily 6) we will consider Lamisil later If the venous ultrasound is negative we will do Kingsley bandage during the daytime remove at nighttime Return to see me Sunday no change at home Assessment Detail: Chief Complaint/Reason for Visit: No diagnosis found. History of Present Illness: Katrin Duran is a 63 y.o. female presenting with c/o cellulitis, swelling lower left leg. On patient went to a local urgent care for generalized myalgias, fatigue and fever. She tested negative for viral illnesses. The next day she began to have swelling and some spots of erythema on her lower left leg and foot with increasing redness and swelling. On 05/21/2023 she presented to the [facility] Emergency Department. She was given Keflex and Bactrim. She is currently on Doxycycline and Cipro. 06/25/2023 Very pleasant 63-year-old white female sent to me by Dr. 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 Antibiotic allergies: Patient has no known allergies. History: Past Medical History: Diagnosis Date Anxiety Depression Disease of thyroid gland No past surgical history on file. Current Outpatient Medications Medication Sig Dispense Refill amoxicillin (AMOXIL) 500 MG tablet Take 1 (one) tablet (500 mg total) by mouth 2 (two) times a day for 7 days . 14 tablet 0 ciprofloxacin HCl (CIPRO) 500 MG tablet Take 1 (one) tablet (500 mg total) by mouth 2 (two) times a day . doxycycline hyclate (VIBRA-TABS) 100 MG tablet Take 1 (one) tablet (100 mg total) by mouth 2 (two) times a day . doxycycline hyclate (VIBRAMYCIN) 100 MG capsule Take 1 (one) capsule (100 mg total) by mouth 2 (two) times a day with meals Stay out of the sun. for 7 days . 14 capsule 0 levothyroxine (SYNTHROID, LEVOTHROID) 50 MCG tablet Take 1 (one) tablet (50 mcg total) by mouth once daily . sertraline (ZOLOFT) 50 MG tablet Take 1 (one) tablet (50 mg total) by mouth daily . No current facility-administered medications for this visit. PMH/PSH/SH/FH reviewed, no change except: Review of Systems: All systems were reviewed and negative except: Medications Reviewed. Chart Reviewed Physical Examination: Vital Signs: BP 134/83 Pulse 70 Temp 97.4 F (36.3 C) Resp 18 SpO2 99% Constitutional: Awake alert answers questions HENT: Did not check for pupillary reactivity Head no oral casper Eyes: No icterus Neck: . Supple Cardiovascular: . Heart S1-S2 1 x 6 systolic murmur present she is a thin person Murmur Pulmonary/Chest: Clear . Abdominal: Soft Musculoskeletal: . Swelling of the left leg present but no calf tenderness Neurological: Ambulatory no gross deficit skin: . Cellulitis and peeling of the left leg present no blisters Khan: IV: Other: Tinea pedis between the left fourth and fifth webspace present Wound: Good bounding palpable pulses 06/27/2023 left leg swelling is less cellulitis and warmth decrease peeling is stable however within the left fourth fifth and third fourth there is still jonatan tinea pedis which is concerning no calf tenderness tolerating doxycycline and amoxicillin culture normal umer Wound 06/25/23 Pre-tibial Left;Proximal (Active) Wound Image 06/25/23 09 Wound Length (cm) 0 cm 06/25/23939 Wound Width (cm) 0 cm 06/25/23939 Wound Depth (cm) 0 cm 06/25/23 09 Wound Surface Area (cm^2) 0 cm^2 06/25/23 0940 Wound Volume (cm^3) 0 cm^3 06/25/23939 Area % Change 0 06/25/23 09 Tunneling Maximum Distance (cm) 0 cm 06/25/23 0940 Undermining Maximum Distance (cm) 1 0 cm 06/25/23939 Wound Progress Initial exam 06/25/2340 Drainage Amount None 06/25/2340 Odor None 06/25/2340 Adherent Yellow Slough % None 06/25/2340 Moist Yellow Slough % None 06/25/2340 Dry Black Eschar % None 06/25/23939 Moist Black Eschar % None 06/25/23939 Epithelialization % 76-100% 06/25/23939 Granulation % None 06/25/23939 Exposed Structure None 06/25/23939 Wound Bed Characteristics Clean;Dry;Intact;Red;Edema 06/25/23939 Yolanda-wound Assessment Temperature WNL;Edema;Errythema 06/25/23939 Treatments Not Applicable 06/25/23939 Hemostasis Not applicable 06/25/23939 Cleansed Soap and water 06/25/23939 Wound 06/25/23 Pre-tibial Left;Proximal (Active) Wound Image 06/25/23939 Wound Length (cm) 0 cm 06/25/23939 Wound Width (cm) 0 cm 06/25/23939 Wound Depth (cm) 0 cm 06/25/23939 Wound Surface Area (cm^2) 0 cm^2 06/25/23939 Wound Volume (cm^3) 0 cm^3 06/25/23939 Area % Change 0 06/25/23939 Tunneling Maximum Distance (cm) 0 cm 06/25/23939 Undermining Maximum Distance (cm) 1 0 cm 06/25/23939 Wound Progress Initial exam 06/25/23939 Drainage Amount None 06/25/2340 Odor None 06/25/23939 Adherent Yellow Slough % None 06/25/23939 Moist Yellow Slough % None 06/25/23939 Dry Black Eschar % None 06/25/23939 Moist Black Eschar % None 06/25/2340 Epithelialization % 76-100% 06/25/23939 Granulation % None 06/25/23939 Exposed Structure None 06/25/23939 Wound Bed Characteristics Clean;Dry;Intact;Red;Edema 06/25/23939 Yolanda-wound Assessment Temperature WNL;Edema;Errythema 06/25/23939 Treatments Not Applicable 06/25/23939 Hemostasis Not applicable 06/25/23939 Cleansed Soap and water 06/25/23939 I have personally reviewed all labs and other results. Labs: Date: 06/27/2023 Update since last visit: 06/25/2023 I have personally reviewed all labs and other results 06/25/2023 Venous Ultrasound Conclusions * No evidence of deep or superficial vein thrombosis in the left lower extremity. 06/17/2023 CT Left Tib/Fib Conclusion: There is no evidence of focal bone abnormality. Extensive subcutaneous edema is present consistent ith cellulitis. There is no evidence of drainable abscess. Current antibiotics: Amoxicillin 500 mg PO BID Doxycycline 100 mg PO BID Current culture: 06/25/2023 [id number], 5th toe webspace: Normal umer after 24 hours. Preliminary. Dressing: Left leg: Lotrisone in clinic. Interdry to toes. DSD, kingsley wrap 05/28/2023 WBC 2.9 Hgb 11.0 Hemat 35.2 Plat 345 Na 137 K+ 4.3 BUN 13 Creat 0.91 Glucose 80 05/27/2023 AST 23 ALT 31 Total Bili 0.2 Microbiology No results found for: CULTURE No orders to display Arterial Dopplers - None on file Venous Dopplers 05/21/2023 2D echo - None on file MRI/CT scan/bone scan/Ceretec scan/indium scan/plain x-ray 05/21/2023 X-ray Left foot Soft tissue swelling 05/21/2023 X-ray Left Tib/fib Soft tissue swelling. No bony abnormality is seen. Surgeries: documented in this encounter [facility] 06-25-2023 History of Present illness Narrative Elba ALMENDAREZ reported to Imani ALMENDAREZ Negative test results. Instructed by Dr Tricia Angel to apply kingsley wrap. Images from the original note were not included. Infectious Diseases Consultation Note Patient Name: Katrin Duran MR #: [id number] : 1960 Physicians: Nam Hinson MD (Family); Josiah Lozoya MD (Referring) Assessment and Plan: 06/25/2023 impression 1) left extremity cellulitis 2) skin with peeling suggestive of staph and strep and original blisters 3) tinea pedis left fourth and fifth webspaces primary source for this recurrence and persistence 4) venous pressure negative at [facility] will need to repeat 5) good ongoing pulses 6) failed multiple p.o. 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 2 times daily 5) doxycycline 100 g p.o. twice daily 6) we will consider Lamisil later If the venous ultrasound is negative we will do Kingsley bandage during the daytime remove at nighttime Return to see me Sunday no change at home Assessment Detail: Chief Complaint/Reason for Visit: No diagnosis found. History of Present Illness: Katrin Duran is a 63 y.o. female presenting with c/o cellulitis, swelling lower left leg. On patient went to a local urgent care for generalized myalgias, fatigue and fever. She tested negative for viral illnesses. The next day she began to have swelling and some spots of erythema on her lower left leg and foot with increasing redness and swelling. On 05/21/2023 she presented to the [facility] Emergency Department. She was given Keflex and Bactrim. She is currently on Doxycycline and Cipro. 06/25/2023 Very pleasant 63-year-old white female sent to me by Dr. 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 Antibiotic allergies: Patient has no known allergies. History: Past Medical History: Diagnosis Date Anxiety Depression Disease of thyroid gland History reviewed. No pertinent surgical history. History reviewed. No pertinent family history. Social History Socioeconomic History Marital status: Tobacco Use Smoking status: Never Substance and Sexual Activity Alcohol use: Never Drug use: Never Current Outpatient Medications Medication Sig Dispense Refill ciprofloxacin HCl (CIPRO) 500 MG tablet Take 1 (one) tablet (500 mg total) by mouth 2 (two) times a day . doxycycline hyclate (VIBRA-TABS) 100 MG tablet Take 1 (one) tablet (100 mg total) by mouth 2 (two) times a day . levothyroxine (SYNTHROID, LEVOTHROID) 50 MCG tablet Take 1 (one) tablet (50 mcg total) by mouth once daily . sertraline (ZOLOFT) 50 MG tablet Take 1 (one) tablet (50 mg total) by mouth daily . No current facility-administered medications for this visit. Review of Systems she had fever and chills originally she had swelling of the left leg Constitutional: Negative for fever, chills, diaphoresis. HENT: Negative for congestion, ear discharge and sore throat. Eyes:Negative Respiratory: Negative for cough Expectoration, chest tightness, shortness of breath and wheezing. Cardiovascular: Negative for chest pain, palpitations and leg swelling. Gastrointestinal: Negative for abdominal pain, blood in stool, constipation, diarrhea and vomiting. Endocrine: Negative. Genitourinary: Negative for difficulty urinating, dysuria, flank pain, frequency and hematuria. Musculoskeletal: Negative for arthralgias, back pain and myalgias. Skin: Negative for rash. Allergic/Immunologic: Negative. Neurological: Negative for seizures. Hematological: Negative for bruises Physical Examination: Vital Signs: BP 125/78 Pulse 63 Temp 98.6 F (37 C) Resp 18 Ht 5' 9 Wt 59 kg (130 lb) SpO2 97% BMI 19.20 kg/m Constitutional: Awake alert answers questions HENT: Did not check for pupillary reactivity Head no oral casper Eyes: No icterus Neck: . Supple Cardiovascular: . Heart S1-S2 1 x 6 systolic murmur present she is a thin person Murmur Pulmonary/Chest: Clear . Abdominal: Soft Musculoskeletal: . Swelling of the left leg present but no calf tenderness Neurological: Ambulatory no gross deficit skin: . Cellulitis and peeling of the left leg present no blisters Khan: IV: Other: Tinea pedis between the left fourth and fifth webspace present Wound: Good bounding palpable pulses Wound 06/25/23 Pre-tibial Left;Proximal (Active) Wound Image 06/25/23939 Wound Length (cm) 0 cm 06/25/23939 Wound Width (cm) 0 cm 06/25/23939 Wound Depth (cm) 0 cm 06/25/23939 Wound Surface Area (cm^2) 0 cm^2 06/25/23939 Wound Volume (cm^3) 0 cm^3 06/25/23939 Area % Change 0 06/25/23939 Tunneling Maximum Distance (cm) 0 cm 06/25/23939 Undermining Maximum Distance (cm) 1 0 cm 06/25/23939 Wound Progress Initial exam 06/25/23939 Drainage Amount None 06/25/23 0940 Odor None 06/25/23939 Adherent Yellow Slough % None 06/25/23939 Moist Yellow Slough % None 06/25/23939 Dry Black Eschar % None 06/25/23939 Moist Black Eschar % None 06/25/23939 Epithelialization % 76-100% 06/25/23939 Granulation % None 06/25/23939 Exposed Structure None 06/25/23939 Wound Bed Characteristics Clean;Dry;Intact;Red;Edema 06/25/23939 Yolanda-wound Assessment Temperature WNL;Edema;Errythema 11/06/23 0940 Treatments Not Applicable 06/25/23939 Hemostasis Not applicable 06/25/23939 Cleansed Soap and water 06/25/23939 I have personally reviewed all labs and other results. Labs: 05/28/2023 WBC 2.9 Hgb 11.0 Hemat 35.2 Plat 345 Na 137 K+ 4.3 BUN 13 Creat 0.91 Glucose 80 05/27/2023 AST 23 ALT 31 Total Bili 0.2 Microbiology No results found for: CULTURE No orders to display Arterial Dopplers - None on file Venous Dopplers 05/21/2023 2D echo - None on file MRI/CT scan/bone scan/Ceretec scan/indium scan/plain x-ray 05/21/2023 X-ray Left foot Soft tissue swelling 05/21/2023 X-ray Left Tib/fib Soft tissue swelling. No bony abnormality is seen. Surgeries: Infectious Diseases Consultation Note Patient Name: Katrin Duran MR #: [id number] : 1960 Physicians: Nam Hinson MD (Family); No ref. provider found (Referring) Assessment and Plan: 1) 2) 3) 4) 5) 6) Recommend: 1) 2) 3) 4) 5) 6) Assessment Detail: Chief Complaint/Reason for Visit: No diagnosis found. History of Present Illness: Katrin Duran is a 63 y.o. female presenting with c/o cellulitis, swelling lower left leg. On patient went to a local urgent care for generalized myalgias, fatigue and fever. She tested negative for viral illnesses. The next day she began to have swelling and some spots of erythema on her lower left leg and foot with increasing redness and swelling. On 05/21/2023 she presented to the [facility] Emergency Department. She was given Keflex and Bactrim. She is currently on Doxycycline and Cipro. Previous Antibiotic: Keflex and Bactrim Allergy Information: I have reviewed the patient's allergies. Antibiotic allergies: Patient has no allergy information on record. History: No past medical history on file. No past surgical history on file. No family history on file. Social History Socioeconomic History Marital status: No current outpatient medications on file. No current facility-administered medications for this visit. Review of Systems Constitutional: Negative for fever, chills, diaphoresis. HENT: Negative for congestion, ear discharge and sore throat. Eyes:Negative Respiratory: Negative for cough Expectoration, chest tightness, shortness of breath and wheezing. Cardiovascular: Negative for chest pain, palpitations and leg swelling. Gastrointestinal: Negative for abdominal pain, blood in stool, constipation, diarrhea and vomiting. Endocrine: Negative. Genitourinary: Negative for difficulty urinating, dysuria, flank pain, frequency and hematuria. Musculoskeletal: Negative for arthralgias, back pain and myalgias. Skin: Negative for rash. Allergic/Immunologic: Negative. Neurological: Negative for seizures. Hematological: Negative for bruises Physical Examination: Vital Signs: Constitutional: HENT: Head Eyes: Neck: . Cardiovascular: . Murmur Pulmonary/Chest: . Abdominal: Musculoskeletal: . Neurological: Skin: . Khan: IV: Other: Wound: I have personally reviewed all labs and other results. Labs: 05/28/2023 WBC 2.9 Hgb 11.0 Hemat 35.2 Plat 345 Na 137 K+ 4.3 BUN 13 Creat 0.91 Glucose 80 05/27/2023 AST 23 ALT 31 Total Bili 0.2 Microbiology No results found for: CULTURE No orders to display Arterial Dopplers - None on file Venous Dopplers 05/21/2023 2D echo - None on file MRI/CT scan/bone scan/Ceretec scan/indium scan/plain x-ray 05/21/2023 X-ray Left foot Soft tissue swelling 05/21/2023 X-ray Left Tib/fib Soft tissue swelling. No bony abnormality is seen. Surgeries: documented in this encounter [facility] 06-25-2023 Instructions Zo Hobbs LPN - 06/25/2023 10:35 AM EST ) [facility] 2) venous ultrasound stat of the left lower extremity Lotrisone to the left leg here once 3) Interdry fabric between the toes Desenex powder at bedtime at home 4) amoxicillin 500 g p.o. 2 times daily 5) doxycycline 100 g p.o. twice daily 6) we will consider Lamisil later If the venous ultrasound is negative we will do Kingsley bandage during the daytime remove at nighttime Return to see me Sunday no change at home documented in this encounter [facility] 05-21-2023 Note HNO ID: [id number] Author: Joya Menendez APRN.[employer] FINANCE PROFESSOR Service: ? Author Type: Nurse Practitioner Type: Progress Notes Filed: 05/21/2023 10:48 AM Note Text: Patient with complaints of pain swelling and redness in the left lower limb. Patient says this happened within a day. Upon assessment patient has significant edema. More than twice the size of her other ankle. Some areas are pitting. Patient's foot is extremely warm patient has very minimal range of motion. Redness goes almost all the way up to the knee. At this time patient is being referred to the emergency room due to how fast it came on. Patient was okay with this care plan and prefers to take her self. [facility] 05-19-2023 Note HNO ID: [id number] Author: Joya Menendez APRN.[employer] PROFESSOR Service: ? Author Type: Nurse Practitioner Type: Progress Notes Filed: 05/19/2023 2:09 PM Note Text: CC: Patient presents with: Fever: Fever, chills and bodyaches off and on x 1 week HPI: Katrin Duran is a 63 year old female who presents to the office with complaint of fever for a week. Symptoms are staying the same. Associated symptoms includes body aches and chills. Denies nasal congestion, sore throat and cough. Treatments tried include nothing so far. with no relief of symptoms. Sick contacts: unknown. History of asthma, frequent episodes of bronchitis, chronic bronchitis, bronchiectasis or COPD: No Smoker: No Seasonal/environmental allergies: No The ROS is otherwise negative. The patient's pmh, medications, allergies, and past visits are reviewed. PHYSICAL EXAM: BP 98/64 Pulse 115 Temp (!) 39.1 ?C (102.4 ?F) (Tympanic) Resp 16 Wt 59.1 kg (130 lb 6.4 oz) LMP 10/07/2010 SpO2 98% General appearance: alert, cooperative, pleasant, in no acute distress Head: Normocephalic Eyes: EOM's intact, conjunctiva pink and moist, no icterus, sclera white, non-injected Heart: Negative. RRR without obvious murmur, gallop, or rubs. No ectopy. Lungs: clear to auscultation, without rales or wheeze, good air exchange PAST MEDICAL HISTORY Diagnosis Date Corneal neovascularization Depression Keratitis Thyroid activity decreased PAST SURGICAL HISTORY Procedure Laterality Date NONE ALLERGIES Patient has no known allergies. MEDICATIONS levothyroxine (SYNTHROID) 100 mcg tablet sertraline (ZOLOFT) 50 mg tablet FAMILY HISTORY Problem Relation Age of Onset Heart Father other (Other) Mother Lung Disease Social History Tobacco Use Smoking status: Never Smokeless tobacco: Never Vaping Use Vaping Use: Never used Substance Use Topics Alcohol use: No ASSESSMENT/PLAN: 1. URI, acute - ICD9: 465.9, ICD10: J06.9 - COVID AND INFLUENZA A/B AND RSV NAAT, ROUTINE OTC medication for symptoms management. Potential red flag symptoms discussed with the patient. Reviewed appropriate action plan to take if red flag symptoms occur. Patient agreeable to treatment plan. Joya Menendez APRN.[facility] 05-19-2023 History of Present illness Narrative CC: Patient presents with: Fever: Fever, chills and bodyaches off and on x 1 week HPI: Katrin Duran is a 63 year old female who presents to the office with complaint of fever for a week. Symptoms are staying the same. Associated symptoms includes body aches and chills. Denies nasal congestion, sore throat and cough. Treatments tried include nothing so far. with no relief of symptoms. Sick contacts: unknown. History of asthma, frequent episodes of bronchitis, chronic bronchitis, bronchiectasis or COPD: No Smoker: No Seasonal/environmental allergies: No The ROS is otherwise negative. The patient's pmh, medications, allergies, and past visits are reviewed. PHYSICAL EXAM: BP 98/64 Pulse 115 Temp (!) 39.1 C (102.4 F) (Tympanic) Resp 16 Wt 59.1 kg (130 lb 6.4 oz) LMP 10/07/2010 SpO2 98% General appearance: alert, cooperative, pleasant, in no acute distress Head: Normocephalic Eyes: EOM's intact, conjunctiva pink and moist, no icterus, sclera white, non-injected Heart: Negative. RRR without obvious murmur, gallop, or rubs. No ectopy. Lungs: clear to auscultation, without rales or wheeze, good air exchange PAST MEDICAL HISTORY Diagnosis Date Corneal neovascularization Depression Keratitis Thyroid activity decreased PAST SURGICAL HISTORY Procedure Laterality Date NONE ALLERGIES Patient has no known allergies. MEDICATIONS levothyroxine (SYNTHROID) 100 mcg tablet sertraline (ZOLOFT) 50 mg tablet FAMILY HISTORY Problem Relation Age of Onset Heart Father other (Other) Mother Lung Disease Social History Tobacco Use Smoking status: Never Smokeless tobacco: Never Vaping Use Vaping Use: Never used Substance Use Topics Alcohol use: No ASSESSMENT/PLAN: 1. URI, acute - ICD9: 465.9, ICD10: J06.9 - COVID & INFLUENZA A/B & RSV NAAT, ROUTINE OTC medication for symptoms management. Potential red flag symptoms discussed with the patient. Reviewed appropriate action plan to take if red flag symptoms occur. Patient agreeable to treatment plan. Joya Menendez APRN.JENNIFER documented in this encounter [facility] 03-28-2022 Miscellaneous Notes L/m for pt that cd will be ready tomorrow 03/29/22 Pt called to get disc of the xrays for her elbow. Patient will pickup on . Any questions patient can be reached at [phone] COLUMBA Brooks documented in this encounter [facility] 03-21-2022 History of Present illness Narrative 03/21/2022 Patient presents with: Pain (Elbow Pain): right x 1 day, fell off ladder SUBJECTIVE: This is a 62 year old that is here today for Complaint(s) of right elbow pain x yesterday. States she was about 2 feet off the ground on a ladder and slipped and fell and landed on the elbow and also stuck the rigth sdie of her head. Has a goose egg per patient. Denies loss of consciousness, nausea, vomiting, diplopia, MARTÍNEZ, dizziness. Not on any oral anticoagulants. Right elbow is painful with movement. Most of the pain on the outside of the elbow. Having swelling. Denies numbness/tingling. No previous injury. PAST MEDICAL HISTORY Diagnosis Date Corneal neovascularization Depression Keratitis Thyroid activity decreased ALLERGIES Patient has no known allergies. MEDICATIONS Current Outpatient Medications Medication Sig levothyroxine (SYNTHROID) 100 mcg tablet sertraline (ZOLOFT) 50 mg tablet No current facility-administered medications for this visit. SOCIAL HISTORY Social History Tobacco Use Smoking status: Never Smoker Smokeless tobacco: Never Used Vaping Use Vaping Use: Never used Substance Use Topics Alcohol use: No Drug use: Not on file REVIEW OF SYSTEMS See HPI OBJECTIVE: BP 102/60 Pulse 90 Temp 36.6 C (97.9 F) Resp 16 Wt 59 kg (130 lb) LMP 10/07/2010 SpO2 99% APPEARANCE Well appearing, alert, in no acute distress, well-hydrated, well nourished. EYES PERRLA, conjunctiva and sclera normal. EOMs intact. NECK Supple, no adenopathy EXTREMITIES Right shoulder with normal ROM. Left elbow with limited extension secondary to pain. + TTP radial head. + mild edema, no erythema or warmth. neurovascular status intact distal to injury with good capillary refill, sensation grossly intact. NEURO Awake, alert and oriented x 3, Cranial nerves II-XII grossly intact, Reflexes symmetrical, Normal gait and No involuntary motions. Normal finger to nose. HEAD + edema/ecchymosis right side of forehead. ASSESSMENT/PLAN: 1. Elbow injury, right, initial encounter - ICD9: 959.3, ICD10: S59.901A (primary diagnosis) Non-displaced radial neck fracture. Patient placed in sling-reports pain controlled and comfortable Discussed early ROM in 24-48 hours as tolerating Rest, ice Appointment with orthopedics on 03/28/22. Seek care sooner for any severe worsening pain, numbness/tingingling worsening symptoms. - XR ELBOW SPECIAL VIEWS AP/LAT/OTHER RIGHT - CONSULT TO ORTHOPAEDICS 2. Injury of head, initial encounter - ICD9: 959.01, ICD10: S09.90XA No loss of consciousness, no other worrisome symptoms including dizziness, MARTÍNEZ, nausea, vomiting, vision changes. Neurologically intact on exam. Advised seek care in ER immediately if develops any of the above or worsening symptoms. Ice The patient indicates understanding of these issues and agrees with the plan. I spent a total of 30 minutes on the date of the service which included [id number] patient care, completing clinical documentation, performing a medically appropriate examination, counseling and educating the patient/family/caregiver, ordering medications, tests, or procedures and communicating results to the patient/family/caregiver. Darlyn Loving PA-C documented in this encounter [facility] [place] [facility] Diagnosis URI, acute- Primary Acute upper respiratory infections of unspecified site documented in this encounter [facility] note* Diagnosis Cellulitis of other specified site- Primary [facility] [place] [facility] Diagnosis Tinea pedis of left foot- Primary Cellulitis of other specified site Swelling Localized superficial swelling, mass, or lump Cellulitis of other specified site Tinea pedis of left foot Swelling Localized superficial swelling, mass, or lump [facility] [place] [facility] Diagnosis Cellulitis of other specified site- Primary Tinea pedis of left foot Swelling Localized superficial swelling, mass, or lump documented in this encounter [facility] Summary Purpose Family History No Family History Records FoundNo Family History Records FoundNo Family History Records FoundNo Family History Records Found Advance Directives No Advanced Directives Records FoundNo Advanced Directives Records FoundNo Advanced Directives Records FoundNo Advanced Directives Records Found Reason for Referral Specialty Diagnoses / Procedures Referred By Wilmar solano Referred To Contact Orthopedics / INITIAL DEPT Diagnoses Elbow injury, right, initial encounter Procedures CONSULT TO ORTHOPAEDICS OFFICE/OUTPATIENT NEW HIGH MDM 60-74 MINUTES OFFICE/OUTPATIENT ESTABLISHED [facility] 30-39 MIN Darlyn Loving PA-C [address] [place] [address] Initial Department Referral ID Status Reason Start Date Expiration Date Visits Requested Visits Authorized [id number] Authorized PCP Requested Referral 03/28/2022 08/19/2022 1 1 Specialty Diagnoses / Procedures Referred By Contac t Referred To Contact XR IMAGING Diagnoses Elbow injury, right, initial encounter Procedures XR ELBOW SPECIAL VIEWS AP/LAT/OTHER RIGHT RADEX ELBOW COMPLETE MINIMUM 3 VIEWS Darlyn Loving PA-C [address] [place] [address] Xr Imaging Referral ID Status Reason Start Date Expiration Date Visits Re quested Visits Authorized [id number] Closed 03/21/2022 08/19/2022 1 1 Specialty Diagnoses / Procedures Referred By Contac t Referred To Contact Wound Care Diagnoses Cellulitis of other specified site Josiah Lozoya MD [address] [facility] [address]rit[address] [place] [address] Josiah Lozoya MD [address] [facility] [address] [place] [address] Referral ID Status Reason Start Date Expiration Date Visits Requested Visits Authorized [id number] Authorized Specialty Services Required/Pat gabinont's Best Interest 06/23/2023 06/22/2024 1 1 Specialty Diagnoses / Procedures Referred By Contac t Referred To Contact Cardiology Diagnoses Cellulitis of other specified site Tinea pedis of left foot Swelling Procedures Ultrasound duplex venous leg left Josiah Lozoya MD [address] [facility] [place] [address] Referral ID Status Reason Start Date Expiration Date Visits Re quested Visits Authorized [id number] Closed 06/25/2023 06/24/2024 1 1 Health Concerns Infection Onset Date Last Indicated Resolved Time COVID-19 Rule-Out 05/19/2023 05/19/2023 Additional Source Comments INFORMATION SOURCE (unrecogn ized section and content) DATE CREATED AUTHOR AUTHOR'S ORGANIZ ATION 05/25/2023 [facility] DATE CREATED AUTHOR AUTHOR'S ORGANIZ ATION 06/06/2023 [facility] DATE CREATED AUTHOR AUTHOR'S ORGANDOMINIK ATION 07/06/2023 [facility] al Source Comments (unrecognize d section and content) In the event this informatio n is protected by the Federal Confidentiality of Alcohol and Drug Abuse Patient Records regulations: The Federal rules restrict any use of the information to criminally investigate or prosecute any alcohol or drug abuse patient.[facility] the event this information is protected by the Federal Confidentiality of Alcohol and Drug Abuse Patient Records regulations: The Federal rules restrict any use of the information to criminally investigate or prosecute any alcohol or drug abuse patient.[facility] the event this information is protected by the Federal Confidentiality of Alcohol and Drug Abuse Patient Records regulations: The Federal rules restrict any use of the information to criminally investigate or prosecute any alcohol or drug abuse patient.[facility] Reason for Visit (unrecogniz ed section and content) Specialty Diagnoses / Procedures Referred By Wilmar t Referred To Contact Internal Medicine / [facility] Diagnoses Right elbow pain Right elbow pain fell off ladder Procedures OFFICE/OUTPATIENT ESTABLISHED MOD MDM 30-39 MIN EST SAME DAY MD Eduardo Bautista Cl [facility] [address] [place] [address] Referral ID Status Reason Start Date Expiration Date Visits Re quested Visits Authorized [id number] Closed 03/21/2022 08/19/2022 1 1 Reason Comments Results Reason Comments Fever Fever, chills and ermias dyaches off and on x 1 week Reason Comments Wound Check Specialty Diagnoses / Procedures Referred By Contac t Referred To Contact Wound Care Diagnoses Cellulitis of other specified site Josiah Lozoya MD [address] [facility] [address] [id number] Josiah Lozoya MD [address] [facility] [address] [place] [address] Referral ID Status Reason Start Date Expiration Date V isits Requested Visits Authorized [id number] Closed Specialty Services Required/Neela ent's Best Interest 06/23/2023 06/22/2024 1 1 Reason Comments Wound Check Care Teams (unrecognized sec tion and content) Logistics Technician Relationship Specialty Start Date End Date Nam Hinson PCP - General Family Practice 10/06/10 Logistics Technician Relationship Specialty Start Date End Date Nam Hinson MD PCP - General Family Medicine 10/06/10 Logistics Technician Relationship Specialty Start Date End Date Nam Hinson MD PCP - General Family Medicine 02/13/19 Malcolm Lambert, JENNIFER Referring Physician Nurse Practitioner 02/13/19 Logistics Technician Relationship Specialty Start Date End Date Nam Hinson MD [address] [place] [address] PCP - General Family Medicine 06/25/23 Malcolm Lambert CNP [address] [place] [address] Nurse Practitioner Nurse Practitioner 06/25/23 Logistics Technician Relationship Specialty Start Date End Date Nam Hinson MD [address] [place] [address] PCP - General Family Medicine 06/25/23 Malcolm Lambert CNP [address] [place] [address] Nurse Practitioner Nurse Practitioner 06/25/23 FOR RECORDS PERTAINING TO PATIENTS WHO ARE OR HAVE BEEN ENROLLED IN A CHEMICAL DEPENDENCY/SUBSTANCEABUSE PROGRAM, SOME INFORMATION MAY BE OMITTED. This clinical summary was aggregated from multiple sources. Caution should be exercised in using it in the provision of clinical care. This summary normalizes information from multiple sources, and as a consequence, information in this document may materially change the coding, format and clinical context of patient data. In addition, data may be omitted in some cases. CLINICAL DECISIONS SHOULD BE BASED ON THE PRIMARY CLINICAL RECORDS. [facility]. provides no warranty or guarantee of the accuracy or completeness of information in this document.
== END | disposition home or self-care (01) ==
LOC: CVS 09:48
PROVIDERS: PCP Family Medicine; Referring Provider Physician Assistant; Visit Provider Physician Assistant
DX: R60.0 Localized edema (principal)
CPT/HCPCS: 93970

== ENCOUNTER → 2023-11-16 | Outpatient (CLI) | payer OTHER, SELFPAY ==
[2023-11-16 17:23] LABS: Absolute Lymphocyte Count 0.84 X10^3/uL (0.83-4.51); Absolute Neutrophil Count 2.1 X10^3/uL (2.0-7.7); Basophil# 0.02 X10^3/uL; Basophil% 0.6 % (0-1); Eosinophil# 0.07 X10^3/uL; Eosinophils% 2.1 % (0-5); Hematocrit 37.1 % (37-47); Hemoglobin 11.9 g/dL (12.0-15.0); Lymphocyte # 0.84 X10^3/ul (0.83-4.51); Lymphocyte % 24.7 % (19-41); Mean Corp Hgb Conc 32.1 g/dL (32-36); Mean Corpuscular Hgb 28.2 pg (27.0-32.0); Mean Corpuscular Volume 87.9 fL (81-99); Mean Platelet Vol. 9.2 fl (6.2-12.0); Monocyte# 0.32 X10^3/uL; Monocyte% 9.4 % (0-10); NRBC Flagged by Analyzer 0 % (0-5); Neutrophil # 2.13 X10^3/uL (2.7-7.7); Neutrophil % 62.6 % (47-70); Platelet Count 210 K/mm3 (150-450); RBC Distribution Width CV 13.2 % (11.6-14.6); RBC Distribution Width SD 42.1 fl (35.1-43.9); Red Blood Count 4.22 M/mm3 (4.2-5.4); White Blood Count 3.4 K/mm3 (4.4-11.0)
[2023-11-16 17:58] LABS: Vitamin D,25 Hydroxy 30.8 ng/mL
[2023-11-16 18:09] LABS: ALB/GLOB Ratio 0.7 RATIO (0.9-2.4); AST(SGOT) 33 U/L (15-37); Alanine Aminotransfer ALT/SGPT 28 U/L (13-56); Albumin, Serum 3.3 g/dL (3.2-5.0); Alkaline Phosphatase 89 U/L (45-117); Anion Gap 4 (5-15); BUN 10 mg/dL (7-18); BUN/Creat Ratio 12.8 RATIO (10-20); Chloride 104 mmol/L (98-107); Cholesterol 171 mg/dL (200); Creatinine, Serum 0.78 mg/dL (0.55-1.02); EST Glomerular Filtration Rate 79 mL/min (>60); Est Glom Filt Rate - Afr Amer 96 mL/min (>60); Glucose 73 mg/dL (74-106); High Density Lipoprotein 61 mg/dL; Protein, Total 8.3 g/dL (6.4-8.2); Sodium Level 138 mmol/L (136-145); Triglycerides 61 mg/dL; Very Low Density Lipoprotein 12 mg/dL (5-40)
== END | disposition home or self-care (01) ==
PROVIDERS: PCP Family Medicine; Referring Provider Family Medicine; Visit Provider Family Medicine
DX: Z00.00 Encounter for general adult medical examination without abnormal findings (principal); E03.9 Hypothyroidism, unspecified
CPT/HCPCS: 36415; 80053; 80061; 82306; 84443; 85025

== ENCOUNTER → 2024-01-08 | Outpatient (CLI) | payer OTHER, SELFPAY ==
[2024-01-08 13:17] LABS: Thyroid Stim Hormone (TSH) 8.73 uIU/mL (0.358-3.74)
== END | disposition home or self-care (01) ==
LOC: MTLAB 10:33
PROVIDERS: PCP Family Medicine; Referring Provider Family Medicine; Visit Provider Family Medicine
DX: E03.9 Hypothyroidism, unspecified (principal)
CPT/HCPCS: 36415; 84443

== ENCOUNTER → 2024-01-16 | Outpatient (CLI) | payer OTHER, SELFPAY ==
--- NOTE | 2024-01-16 16:40 | US_ITS ---
EXAM: US SOFT TISSUES HEAD AND NECK, THYROID CLINICAL INDICATION: worsening hypothyroidism TECHNIQUE: Velazquez scale and color doppler imaging was performed of the thyroid gland. COMPARISON: No relevant prior studies available. FINDINGS: LEFT THYROID LOBE: Left thyroid lobe measures 4.1 x 1.6 x 1.1 cm. Homogeneous echotexture with normal vascularity. No thyroid nodules are present. RIGHT THYROID LOBE: Right thyroid lobe measures 4.5 x 1.2 x 1.1 cm. 4 mm solid nodule identified. This nodule is solid or almost completely solid, hyperechoic or isoechoic, [id number], smoothly marginated and contains no echogenic foci. TI-RADS points: 3. TI-RADS category: TR3. This nodule is mildly suspicious but no FNA or follow-up is necessary given the small size of this nodule. Right thyroid echogenicity is otherwise unremarkable. ISTHMUS: Isthmus measures 2 mm in AP dimension. No thyroid nodules are present. US/Thyroid IMPRESSION: 4 mm right thyroid nodule. No follow-up indicated. Electronically Signed: Michael Lafleur MD at 14:29 EDT ,
== END | disposition home or self-care (01) ==
PROVIDERS: PCP Family Medicine; Referring Provider Family Medicine; Visit Provider Family Medicine
DX: E03.9 Hypothyroidism, unspecified (principal)
CPT/HCPCS: 76536

== ENCOUNTER → 2024-03-07 | Outpatient (CLI) | payer OTHER, SELFPAY ==
[2024-03-07 10:52] LABS: Thyroid Stim Hormone (TSH) 0.83 uIU/mL (0.358-3.74)
== END | disposition home or self-care (01) ==
LOC: MFPLAB 09:18
PROVIDERS: PCP Family Medicine; Visit Provider Family Medicine
DX: E03.9 Hypothyroidism, unspecified (principal)
CPT/HCPCS: 36415; 84443

== ENCOUNTER 2024-12-18 14:34 | Emergency (ER) | payer OTHER, SELFPAY ==
[2024-12-18] VITALS (7 sets, daily range): BP systolic 108–120; BP diastolic 61–103; PULSE 86–108; RESP 17–20; TEMP 37–37.9; O2SAT 96–100; BMI 19.7
--- NOTE | 2024-12-18 14:53 | EKG12_ITS ---
Test Reason : GENERAL Blood Pressure : */* mmHG Vent. Rate : 100 BPM Atrial Rate : 100 BPM P-R Int : 130 ms QRS Dur : 70 ms QT Int : 324 ms P-R-T Axes : 83 81 46 degrees QTcB Int : 417 ms Normal sinus rhythm Normal ECG Confirmed by RADHA COOK, CELE ([id number]), continuity editor MJ MARTINEZ ([id number]) on 12/19/2024 8:18:01 AM Referred By: Confirmed By: CELE GARCIA MD
[2024-12-18] MEDS: Ondansetron 4 MG/2 ML Vial IV (15:03)
[2024-12-18] MEDS: Acetaminophen 325 MG Tablet 650 MG PO (15:03)
[2024-12-18] MEDS: 0.9% Normal Saline (1000mL) 1,000 ML 999 ML IV (15:04)
--- NOTE | 2024-12-18 15:04 | EX.ED.DYSGE1 ---
HPI <ROSA Figueroa - Last Filed: 12/18/24 20:20> History of Present Illness Chief Complaint: General Illness Narrative Narrative: Patient presenting today after being sent over from urgent care due to concerns for fever, nausea, lightheadedness, fatigue, and headache. She reports that her symptoms started early this morning, she felt okay yesterday aside from a slight headache. She denies nasal congestion, cough, sore throat, abdominal pain, vomiting, and diarrhea. She has a history of hypothyroidism. PFSH <ROSA Figueroa - Last Filed: 12/18/24 20:20> [facility] Medical History Anxiety Hypothyroidism Home Medications ?Medication ?Instructions ?Recorded ?Last Taken ?Type levothyroxine 100 mcg tablet 100 mcg PO DAILY 05/23/23 Unknown History sertraline 50 mg tablet 50 mg PO Q24H 05/23/23 Unknown History Allergy/AdvReac Type Severity Reaction Status Date / Time Seasonal Allergies: Uncoded AdvReac Intermediate Itching Verified 12/18/24 14:40 Family History Other Thyroid disorder Social History household members: spouse housing: house Smoking Status: Never smoker ROS <ROSA Figueroa - Last Filed: 12/18/24 20:20> ROS ED Constitutional Constitutional ED: Reports chills and fever(s) Eyes Eyes: Denies change in vision ENT ENT ED: Denies rhinorrhea or sore throat Cardiovascular Cardiovascular: Denies chest pain Respiratory/Chest Respiratory/Chest: Denies cough or dyspnea Gastrointestinal Gastrointestinal: Reports nausea; Denies abdominal pain, diarrhea or vomiting Genitourinary Genitourinary ED: Denies dysuria, hematuria or urinary urgency Musculoskeletal Musculoskeletal: Reports other Details: body aches ; Denies neck pain Integumentary Denies rash Neurologic Neurologic: Reports headache(s) EXAM <ROSA Figueroa - Last Filed: 12/18/24 20:20> Physical Exam Const Vital Signs: 12/18/24 14:35 12/18/24 14:39 12/18/24 14:45 Temperature 100.2 F H 100.2 F H Temperature Source Oral Oral Pulse Rate 108 H 108 H Respiratory Rate 20 H 20 H Respiratory Effort Normal Non-Labored Respiratory Pattern Normal Blood Pressure 111/67 111/67 Blood Pressure Mean 81 81 Pulse Ox 97 97 Oxygen Delivery Method Room Air Room Air 12/18/24 15:15 12/18/24 15:39 12/18/24 16:00 Temperature 99.3 F H 99.3 F H Temperature Source Oral Oral Pulse Rate 95 95 Respiratory Rate 18 17 Respiratory Effort Respiratory Pattern Blood Pressure 116/103 H 112/89 H Blood Pressure Mean 107 96 Pulse Ox 100 99 96 Oxygen Delivery Method Room Air Room Air Room Air 12/18/24 17:00 12/18/24 18:51 Temperature 99.2 F H 98.6 F Temperature Source Oral Pulse Rate 90 86 Respiratory Rate 18 20 H Respiratory Effort Respiratory Pattern Blood Pressure 120/78 108/61 Blood Pressure Mean 92 76 Pulse Ox 98 98 Oxygen Delivery Method Room Air Positive well nourished, well developed and no apparent distress General Appearance ED: well developed HEENT Reports normocephalic, head/scalp atraumatic and TM's clear HEENT Narrative: Posterior pharynx clear, no tonsillar exudate Tympanic Membrane ED: Yes TM's clear bilateral Mouth ED: Yes moist mucous membranes normal Eyes PERRL and EOMs intact bilaterally Neck full ROM and supple Neck Narrative: No meningeal signs Chest Wall inspection of chest normal Resp normal respiratory effort and clear to auscultation bilaterally Cardio regular rate and regular rhythm GI soft to palpation, non-tender, non-distended and no masses Back/Spine normal ROM and normal to inspection Extremity normal to inspection and full ROM Neuro oriented x3, CN's II-XII intact bilaterally, moves all extremities, no focal motor deficits and no sensory deficits noted Sensorium / Orientation: awake and alert Psych mental status grossly normal and thought process normal Skin no rashes or lesions noted and no wounds <Dr. Julian Ramos MD - Last Filed: 12/18/24 18:48> Physical Exam Const Vital Signs: 12/18/24 14:35 12/18/24 14:39 12/18/24 14:45 Temperature 100.2 F H 100.2 F H Temperature Source Oral Oral Pulse Rate 108 H 108 H Respiratory Rate 20 H 20 H Respiratory Effort Normal Non-Labored Respiratory Pattern Normal Blood Pressure 111/67 111/67 Blood Pressure Mean 81 81 Pulse Ox 97 97 Oxygen Delivery Method Room Air Room Air 12/18/24 15:15 12/18/24 15:39 12/18/24 16:00 Temperature 99.3 F H 99.3 F H Temperature Source Oral Oral Pulse Rate 95 95 Respiratory Rate 18 17 Respiratory Effort Respiratory Pattern Blood Pressure 116/103 H 112/89 H Blood Pressure Mean 107 96 Pulse Ox 100 99 96 Oxygen Delivery Method Room Air Room Air Room Air 12/18/24 17:00 12/18/24 18:51 Temperature 99.2 F H 98.6 F Temperature Source Oral Pulse Rate 90 86 Respiratory Rate 18 20 H Respiratory Effort Respiratory Pattern Blood Pressure 120/78 108/61 Blood Pressure Mean 92 76 Pulse Ox 98 98 Oxygen Delivery Method Room Air OZZY <ROSA Figueroa - Last Filed: 12/18/24 20:20> [facility] Narrative Medical decision making narrative: Patient presenting with bodyaches, fever, chills, nausea, headache, and fatigue that started this morning. She really does not have any respiratory symptoms and she does trigger SIRS criteria, therefore septic workup will be obtained. COVID/influenza/RSV swab will be obtained. Labs reveal leukocytosis at 15.1, sodium 130, UA negative for UTI. Blood cultures obtained. She does appear dry, patient was given IV fluids and Tylenol. Her viral swab is negative. Chest x-ray reveals a right-sided nodular opacity in the lower lobe, chest CT obtained to further evaluate this nodule as well as rule out pneumonia. This shows a right lower lobe pulmonary mass with surrounding groundglass opacification and small satellite nodules concerning for neoplasm. I will give her a fast pass for oncology so that she can get a biopsy and further diagnosis of this mass. On reexamination she is feeling significantly improved and her vitals have improved. 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 She feels comfortable being discharged home with strict return precautions. She will be discharged in stable condition. Lab Data Attestation: I reviewed the patient's lab results. Labs: Laboratory Results - last 24 hr 12/18/24 12/18/24 15:06 15:12 WBC 15.1 H RBC 4.59 Hgb 13.3 Hct 40.0 MCV 87.1 MCH 29.0 MCHC 33.3 RDW Std Deviation 41.1 RDW Coeff of Feliz 13.0 Plt Count 219 MPV 8.8 Immature Gran % (Auto) 0.800 Neut % (Auto) 91.3 H Lymph % (Auto) 2.6 L Mayes % (Auto) 5.1 Eos % (Auto) 0.0 Baso % (Auto) 0.2 Absolute Neuts (auto) 13.8 H Absolute Lymphs (auto) 0.40 L Nucleated RBC % 0 PT 14.2 INR 1.1 APTT 25.8 Sodium 130 L Potassium 4.2 Chloride 97 L Carbon Dioxide 23.7 Anion Gap 9 BUN 17 Creatinine 0.88 Estim Creat Clear Calc 61.79 Est GFR (MDRD) Non-Af 74 BUN/Creatinine Ratio 19.3 Glucose 105 H Lactic Acid < 1.0 Calcium 9.1 Total Bilirubin 0.45 AST 29 ALT 17 Alkaline Phosphatase 105 H Total Protein 8.8 H Albumin 3.9 Globulin 4.8 H Albumin/Globulin Ratio 0.8 L Urine Color Yellow Urine Clarity Clear Urine pH 6.0 Ur Specific [place] 1.010 Urine Protein 15 H Urine Glucose (UA) Normal Urine Ketones Negative Urine Occult Blood Negative Urine Nitrite Negative Urine Bilirubin Negative Urine Urobilinogen Normal Ur Leukocyte Esterase Negative Urine RBC 0-5 SEEN Urine WBC 0-5 SEEN Ur Squamous Epith Cells 0-5 SEEN Urine Bacteria 0 SEEN Urine Mucus 0 SEEN Radiography X-Ray: Read by ED Physician Diagnostic Testing: Clinical Impression(s) from Imaging Studies Chest X-Ray 12/18/24 15:20 IMPRESSION: 1. 21 mm nodular opacity in the RIGHT lower lobe. Recommend CT chest for improved characterization, which may be on an outpatient basis. No other definite evidence of pneumonia, however it should be noted that pulmonary nodules can be infectious/inflammatory. 2. Additional description as above. Reading Location: [id number] Chest CT 12/18/24 16:40 IMPRESSION: 1. Right lower lobe pulmonary mass with surrounding ground-glass opacification and additional small satellite nodules, most compatible with lung neoplasm. Nonurgent tissue biopsy is recommended for further evaluation. 2. No thoracic lymphadenopathy. 3. Mild biliary ductal dilation, incompletely visualized. Correlation with LFTs is recommended. Reading Location: [facility] EKG Initial EKG: Comments: 100 bpm, normal sinus rhythm, no ST elevation, interpreted by attending ED physician <Dr. Julian Ramos MD - Last Filed: 12/18/24 18:48> [facility] Lab Data Labs: Laboratory Results - last 24 hr 12/18/24 12/18/24 15:06 15:12 WBC 15.1 H RBC 4.59 Hgb 13.3 Hct 40.0 MCV 87.1 MCH 29.0 MCHC 33.3 RDW Std Deviation 41.1 RDW Coeff of Feliz 13.0 Plt Count 219 MPV 8.8 Immature Gran % (Auto) 0.800 Neut % (Auto) 91.3 H Lymph % (Auto) 2.6 L Mayes % (Auto) 5.1 Eos % (Auto) 0.0 Baso % (Auto) 0.2 Absolute Neuts (auto) 13.8 H Absolute Lymphs (auto) 0.40 L Nucleated RBC % 0 PT 14.2 INR 1.1 APTT 25.8 Sodium 130 L Potassium 4.2 Chloride 97 L Carbon Dioxide 23.7 Anion Gap 9 BUN 17 Creatinine 0.88 Estim Creat Clear Calc 61.79 Est GFR (MDRD) Non-Af 74 BUN/Creatinine Ratio 19.3 Glucose 105 H Lactic Acid < 1.0 Calcium 9.1 Total Bilirubin 0.45 AST 29 ALT 17 Alkaline Phosphatase 105 H Total Protein 8.8 H Albumin 3.9 Globulin 4.8 H Albumin/Globulin Ratio 0.8 L Urine Color Yellow Urine Clarity Clear Urine pH 6.0 Ur Specific [place] 1.010 Urine Protein 15 H Urine Glucose (UA) Normal Urine Ketones Negative Urine Occult Blood Negative Urine Nitrite Negative Urine Bilirubin Negative Urine Urobilinogen Normal Ur Leukocyte Esterase Negative Urine RBC 0-5 SEEN Urine WBC 0-5 SEEN Ur Squamous Epith Cells 0-5 SEEN Urine Bacteria 0 SEEN Urine Mucus 0 SEEN Radiography Diagnostic Testing: Clinical Impression(s) from Imaging Studies Chest X-Ray 12/18/24 15:20 IMPRESSION: 1. 21 mm nodular opacity in the RIGHT lower lobe. Recommend CT chest for improved characterization, which may be on an outpatient basis. No other definite evidence of pneumonia, however it should be noted that pulmonary nodules can be infectious/inflammatory. 2. Additional description as above. Reading Location: [facility] Chest CT 12/18/24 16:40 IMPRESSION: 1. Right lower lobe pulmonary mass with surrounding ground-glass opacification and additional small satellite nodules, most compatible with lung neoplasm. Nonurgent tissue biopsy is recommended for further evaluation. 2. No thoracic lymphadenopathy. 3. Mild biliary ductal dilation, incompletely visualized. Correlation with LFTs is recommended. Reading Location: [facility] Treatment and Re-Evaluation Comments:: I have personally performed a face to face assessment of the patient and have reviewed the LI Note. I performed a substantive portion of the visit including all aspects of the following. My khan findings include: History is myalgias, fever, headache that basically started today. No focal symptoms otherwise. No dysuria or frequency or respiratory symptoms. 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 Exam is well-appearing no distress, mild tachycardia, abdomen benign, lungs clear to auscultation throughout, no cervical lymphadenopathy no CVA tenderness. No rashes or petechia. Medical Decison Making suspect viral syndrome, but given that she is a little older we are obtaining a septic workup to rule out dangerous causes of her fever. Two-view chest x-ray my interpretation negative for pneumonia, But there is a rounded opaque abnormality in the right lower lobe that may be a mass. Radiology agreement. Because this could be around the pneumonia and she has a leukocytosis, we sent her for an emergent CT chest with IV contrast. I reviewed the images and the results and I agree with that. Basically suspicious for malignancy because there are satellite lesions on the same side. There is a differential for this including malignancy but also other things. She will probably need a biopsy. She presents after business hours so we are going to fast-past her to oncology so they can hopefully direct her to get appropriate follow-up for biopsy and diagnosis. Discussed with her and her she is comfortable with this plan and feeling much better after the fluids and medications we gave her here for her fever which we suspect is due to a virus given her contact with multiple school-aged children and negative workup otherwise. She is not septic and I do not think she needs blood cultures. Other additions or changes: [None] Discharge Plan Triage Chief Complaint: General Illness ED Midlevel Provider: Aurora Hastings ED Provider: Julian Ramos Dx/Rx/DC Orders Clinical Impression: Viral syndrome, Mass of right lung Instructions: ED Viral Syndrome (Adult) Prescriptions: No Action sertraline 50 mg tablet 50 mg PO Q24H levothyroxine 100 mcg tablet 100 mcg PO DAILY Other Ambulatory Orders: Fast Pass: Oncology Referral [facility] (Routine) Facility: [facility] - Location: [facility] Ordered By: Aurora Hastings Primary Care Provider: Anna Plaza Referrals: Anna Plaza MD [Primary Care Provider] - 5-7 Days Activity Restrictions/Additional Instructions: We have referred you to oncology, please follow-up closely with them as well as your PCP and return for any worsening symptoms. Print Language: Frisian Disposition Disposition: Home, Self Care Discharge Date/Time: 12/18/24 18:53
[2024-12-18 15:20] LABS: Bacteria 0 SEEN /hpf (None Seen); Mucous, Urine 0 SEEN /hpf (<or=2+)
--- NOTE | 2024-12-18 15:20 | RAD_ITS ---
PROCEDURE: CHEST PA AND LATERAL (RADCXR), 12/18/2024 REASON FOR EXAM: SEPSIS WORKUP TECHNIQUE: PA and lateral views of the chest were obtained. COMPARISON: None FINDINGS: Heart: Unremarkable. Mediastinum: Unremarkable. Lungs/pleura: Question emphysema. 21 mm nodular opacity in the RIGHT lower lobe. Linear likely atelectasis/scarring along the peripheral RIGHT upper lung. No pleural effusion or visible pneumothorax. Bones: Demineralization. Multilevel spondylosis. Exaggerated normal thoracic kyphosis. Trace thoracolumbar dextroscoliosis.. Lines and support devices: None. Other: None. RAD/Chest PA and Lateral IMPRESSION: 1. 21 mm nodular opacity in the RIGHT lower lobe. Recommend CT chest for impro henry characterization, which may be on an outpatient basis. No other definite evidence of pneumonia, however it should b e noted that pulmonary nodules can be infectious/inflammatory. 2. Additional description as above. Reading Location: [id number]
[2024-12-18 15:30] LABS: Absolute Neutrophil Count 13.8 X10^3/uL (2.0-7.7); Basophil# 0.03 X10^3/uL; Basophil% 0.2 % (0-1); Hemoglobin 13.3 g/dL (12.0-15.0); Lymphocyte % 2.6 % (19-41); Mean Corp Hgb Conc 33.3 g/dL (32-36); Mean Corpuscular Volume 87.1 fL (81-99); Mean Platelet Vol. 8.8 fl (6.2-12.0); Monocyte# 0.77 X10^3/uL; Monocyte% 5.1 % (0-10); NRBC Flagged by Analyzer 0 % (0-5); Neutrophil # 13.79 X10^3/uL (2.7-7.7); Neutrophil % 91.3 % (47-70); POSITIVE DIFFERENTIAL YES; Platelet Count 219 K/mm3 (150-450); RBC Distribution Width SD 41.1 fl (35.1-43.9); Red Blood Count 4.59 M/mm3 (4.2-5.4); White Blood Count 15.1 K/mm3 (4.4-11.0)
[2024-12-18 15:40] LABS: International Normalized Ratio 1.1; Partial Thromboplast Time 25.8 Seconds (24.1-36.2); Prothrombin Time (Protime)PT. 14.2 SECONDS (11.7-14.9)
[2024-12-18 15:49] LABS: Color, Urine Yellow (Yellow); Glucose, Dipstick Normal (Normal); Ketone-Dipstick Negative (Negative); Leukocyte Esterase-Dipstick Negative /ul (Negative); Nitrite-Dipstick Negative (Negative); Occult Blood-Urine Negative /ul (Negative); Protein-Dipstick 15 mg/dl (Negative); Urine Bilirubin Dipstick Negative (Negative); Urine Clarity Clear (Clear); Urine Urobilinogen Normal (Normal)
[2024-12-18 15:51] LABS: Red Blood Cells-Urine 0-5 SEEN /hpf (0-5); Squamous Epithelial Cells - UA 0-5 SEEN /hpf (5-10); White Blood Cells 0-5 SEEN /hpf (0-5)
[2024-12-18 16:02] LABS: ALB/GLOB Ratio 0.8 RATIO (0.9-2.4); AST(SGOT) 29 U/L (<=31); Alanine Aminotransfer ALT/SGPT 17 U/L (<=34); Albumin, Serum 3.9 g/dL (3.4-4.8); Alkaline Phosphatase 105 U/L (35-104); Anion Gap 9 (5-15); BUN 17 mg/dL (4-19); BUN/Creat Ratio 19.3 RATIO (10-20); Calcium,Total 9.1 mg/dL (7.6-11.0); Carbon Dioxide 23.7 mmol/L (21.0-32.0); Chloride 97 mmol/L (98-108); Creatinine, Serum 0.88 mg/dL (0.70-1.20); EST Glomerular Filtration Rate 74 (>60); Estimated Creatinine Clearance 61.79 ml/min (50-250); Globulin 4.8 g/dL (2.2-4.2); Glucose 105 mg/dL (70-99); Potassium 4.2 mmol/L (3.3-5.1); Protein, Total 8.8 g/dL (5.9-8.4); Sodium Level 130 mmol/L (133-145); Total Bilirubin 0.45 mg/dL (0.00-1.30)
[2024-12-18 16:03] LABS: Lactic Acid < 1.0 mmol/L (0.0-2.0)
--- NOTE | 2024-12-18 16:40 | CT_ITS ---
PROCEDURE: CHEST WITH CONTRAST 12/18/2024 REASON FOR EXAM: ABN CXR, FEVER TECHNIQUE: Axial chest CT with intravenous contrast. Coronal and Sagittal reconstruction series were provided. CONTRAST: Isovue-300 VOLUME: 100 mL One or more dose reduction techniques were used (e.g., Automated exposure control, adjustment of the mA and/or kV according to patient size, use of iterative reconstruction technique). RADIATION DOSE SUMMARY: CTDlvol: 20 mGy DLP: 200 mGycm COMPARISON: Same day chest radiograph. FINDINGS: Hardware: None. Lymph nodes: No axillary, mediastinal or hilar lymphadenopathy. Heart and Vasculature: The heart is normal in size without pericardial effusion. Minimal thoracic aortic calcifications. The great vessels are normal in caliber. Lungs and Airways: The central airways are patent. Mild bronchiectasis and emphysema with scattered areas of pleural-parenchymal scarring, greatest in the lung apices. Solid pulmonary mass with surrounding ground-glass opacification and additional small satellite nodules within the right lower lobe, measuring 3.2 x 2.6 cm (series 2, image 79). Small subpleural nodule along the posterior left lower lobe (series 2, image 62). Upper Abdomen: Mild biliary ductal dilation, incompletely visualized. Bones: Degenerative changes of the thoracic spine. CT/Chest WITH Contrast IMPRESSION: 1. Right lower lobe pulmonary mass with surrounding ground-glass opacification and additional small satellite nodules, most compatible with lung neoplasm. Nonurgent tissue biopsy is recommended for furt her evaluation. 2. No thoracic lymphadenopathy. 3. Mild biliary ductal dilation, incompletely visualized. Correlation with LFT s is recommended. Reading Location: [id number]
== END 2024-12-18 18:53 | disposition home or self-care (01) ==
PROVIDERS: Physician Assistant; Emergency Provider Emergency Medicine; PCP Family Medicine; Visit Provider Emergency Medicine
DX: B34.9 Viral infection, unspecified (principal); R91.8 Other nonspecific abnormal finding of lung field; R50.9 Fever, unspecified; F41.9 Anxiety disorder, unspecified; E03.9 Hypothyroidism, unspecified; Z79.899 Other long term (current) drug therapy; Z79.890 Hormone replacement therapy
CPT/HCPCS: 71046; 71260; 80053; 81001; 83605; 85025; 85610; 85730; 87040; 87077; 87086; 87088; 87631; 93005; 96361; 96374; 99284; Q9967; A4216; J2405

== ENCOUNTER → 2025-01-22 | Outpatient (CLI) | payer OTHER, SELFPAY ==
[2025-01-22 10:35] LABS: Absolute Lymphocyte Count 0.71 X10^3/uL (0.83-4.51); Absolute Neutrophil Count 1.6 X10^3/uL (2.0-7.7); Basophil# 0.04 X10^3/uL; Basophil% 1.4 % (0-1); Eosinophil# 0.13 X10^3/uL; Eosinophils% 4.5 % (0-5); Hematocrit 37.6 % (37-47); Lymphocyte # 0.71 X10^3/ul (0.83-4.51); Lymphocyte % 24.5 % (19-41); Mean Corp Hgb Conc 31.9 g/dL (32-36); Mean Corpuscular Hgb 28.8 pg (27.0-32.0); Mean Corpuscular Volume 90.4 fL (81-99); Monocyte# 0.44 X10^3/uL; Monocyte% 15.2 % (0-10); NRBC Flagged by Analyzer 0 % (0-5); Neutrophil # 1.57 X10^3/uL (2.7-7.7); Neutrophil % 54.1 % (47-70); Platelet Count 217 K/mm3 (150-450); RBC Distribution Width CV 13.2 % (11.6-14.6); RBC Distribution Width SD 43.9 fl (35.1-43.9); Red Blood Count 4.16 M/mm3 (4.2-5.4); White Blood Count 2.9 K/mm3 (4.4-11.0)
[2025-01-22 11:01] LABS: ALB/GLOB Ratio 0.8 RATIO (0.9-2.4); AST(SGOT) 30 U/L (<=31); Alanine Aminotransfer ALT/SGPT 16 U/L (<=34); Albumin, Serum 3.4 g/dL (3.4-4.8); Alkaline Phosphatase 91 U/L (35-104); Anion Gap 8 (5-15); BUN 14 mg/dL (4-19); BUN/Creat Ratio 17.2 RATIO (10-20); Calcium,Total 8.9 mg/dL (7.6-11.0); Carbon Dioxide 23.4 mmol/L (21.0-32.0); Chloride 103 mmol/L (98-108); Cholesterol 173 mg/dL (<=200); Creatinine, Serum 0.82 mg/dL (0.70-1.20); EST Glomerular Filtration Rate 80 (>60); Glucose 93 mg/dL (70-99); High Density Lipoprotein 61 mg/dL; Low Density Lipoprotein Calc. 98 mg/dL; Potassium 5.1 mmol/L (3.3-5.1); Protein, Total 7.4 g/dL (5.9-8.4); Sodium Level 134 mmol/L (133-145); Total Bilirubin 0.35 mg/dL (0.00-1.30); Triglycerides 67 mg/dL; Very Low Density Lipoprotein 13 mg/dL (5-40); Vitamin D,25 Hydroxy 24.1 ng/mL (30-100); cholesterol:hdl ratio screen 2.83
== END | disposition home or self-care (01) ==
LOC: MFPLAB 08:47
PROVIDERS: PCP Family Medicine; Referring Provider Family Medicine; Visit Provider Family Medicine
DX: F41.9 Anxiety disorder, unspecified (principal); E03.9 Hypothyroidism, unspecified; Z13.220 Encounter for screening for lipoid disorders; Z13.1 Encounter for screening for diabetes mellitus
CPT/HCPCS: 36415; 80053; 80061; 82306; 84443; 85025

== ENCOUNTER → 2025-02-04 | Outpatient (CLI) | payer OTHER, SELFPAY ==
--- NOTE | 2025-02-04 08:56 | CT_ITS ---
PROCEDURE: CHEST WITHOUT CONTRAST 02/04/2025 REASON FOR EXAM: LUNG MASS Follow-up examination. TECHNIQUE: Chest CT without contrast. Coronal and Sagittal reconstruction series were provided. One or more dose reduction techniques were used (e.g., Automated exposure control, adjustment of the mA and/or kV according to patient size, use of iterative reconstruction technique RADIATION DOSE SUMMARY: CTDlvol: 6.28 mGy DLP: 254.16 mGycm COMPARISON: Prior study dated December 18, 2024. FINDINGS: Hardware: None Lymph nodes: Small benign-appearing lymph node seen in both axillary regions slightly more prominent on the left side. Heart and Vasculature: The heart is not enlarged. Minimal coronary artery calcification present. Coronary Artery Calcifications: Present Lungs and Airways: Stable scarring in the lung apices more pronounced in the right lung apex. Stable pleural-based soft tissue density in the posterolateral aspect of the right upper lobe as seen on axial image number 152 and 153. This is unchanged. The previously seen nodular density in the right lower lobe is not seen at this time. Pleura: No pleural effusion. Upper Abdomen: Unremarkable Bones: Degenerative changes of the thoracic spine. CT/Chest without Contrast IMPRESSION: Coronary artery calcification (CAC) is is present The previously seen nodular density in the right lower lobe is not seen at this time. Stable scarring at the lung apices as well as in the peripheral lateral posteri or aspect of the right lower lobe. Reading Location: [place] [id number]
== END | disposition home or self-care (01) ==
LOC: CT 08:55
PROVIDERS: PCP Family Medicine; Referring Provider Internal Medicine Critical Care Medicine; Visit Provider Internal Medicine Critical Care Medicine
DX: R91.8 Other nonspecific abnormal finding of lung field (principal)
CPT/HCPCS: 71250

== ENCOUNTER → 2025-04-10 | Outpatient (CLI) | payer OTHER, SELFPAY | END | disposition home or self-care (01) | LOC: MFPLAB 10:08 | PROVIDERS: PCP Family Medicine; Referring Provider Family Medicine; Visit Provider Family Medicine | DX: E03.9 Hypothyroidism, unspecified (principal) | CPT/HCPCS: 36415; 84443 ==

== ENCOUNTER → 2025-06-15 | Outpatient (CLI) | payer OTHER, SELFPAY | END | disposition home or self-care (01) | LOC: MTLAB 10:19 | PROVIDERS: PCP Family Medicine; Referring Provider Family Medicine; Visit Provider Family Medicine | DX: E03.9 Hypothyroidism, unspecified (principal) | CPT/HCPCS: 36415; 84443 ==